=== PATIENT | male | born 1975 | race African-American/Black ===

== ENCOUNTER 2017-05-10 22:43 | Inpatient (IN) ==
[2017-05-10 23:22] LABS: Basophils % 0.5 % (0.0-0.8); Eosinophils # 0.1 10*3/uL (0.0-0.87); Hematocrit 32.2 VOL% (42.0-52.0); Hemoglobin 10.2 GM/DL (14.0-18.0); Immature Granulocytes % 0.8 %; Immature Granulocytes Absolute 0.07 #; Lymphocytes # 1.1 10*3/uL (1.4-4.0); Lymphocytes % 12.5 % (21.2-54.2); Mean Corpuscular HGB Conc 31.7 GM/DL (32-36); Mean Corpuscular Hemoglobin 26 PG (27-34); Mean Platelet Volume 12.7 FL (9.6-12.0); Monocytes # 0.6 10*3/uL (0.11-0.8); Monocytes % 7.1 % (1.7-12.7); Neutrophils # 6.6 10*3/uL (1.4-7.4); Neutrophils % 78.1 % (38.7-73.9); Platelet Count 186 T/CUMM (130-400); Red Blood Count 3.88 MC/CUMM (3.8-5.5); Red Cell Distribution Width 19.9 % (9.3-17.3); White Blood Count 8.4 T/CUMM (4-12)
[2017-05-10 23:29] LABS: VBG HCO3 27.2 MEQ/L (24-28); VBG PCO2 32.8 MMHG (41-51); VBG PH 7.504
[2017-05-11] LABS: Albumin 3.3 G/DL (3.4-5.0); Bilirubin,Total 1.3 MG/DL (0.2-1.0); Calcium 8.2 MG/DL (8.5-10.1); Osmolality,Calculated 297.8 MOS/KG (273-304); Total Protein 7.8 G/DL (6.4-8.3); Troponin I Only 0.038 NG/ML (0.00-0.045)
[2017-05-11] MEDS ORDERED: ONDANSETRON 4 MG/2 ML VIAL IV PRN (00:45)
[2017-05-11] MEDS ORDERED: DEXTROSE 50% 25 GM/50 ML VIAL IV PRN (00:45)
[2017-05-11] MEDS ORDERED: GLUCAGON 1 MG VIAL IM PRN (00:45)
[2017-05-11] MEDS ORDERED: PREGABALIN 75 MG CAPSULE PO PRN (00:48)
[2017-05-11] MEDS: INSULIN GLARGINE 100 UNIT/ML SUBCUT SCH ×2 (02:08→20:20)
[2017-05-11] MEDS: CARVEDILOL 25 MG TABLET PO SCH ×3 (02:08→20:19)
[2017-05-11] MEDS: ZALEPLON 5 MG CAPSULE PO PRN ×2 (02:15→20:19)
[2017-05-11 06:18] LABS: Basophils # 0.1 10*3/uL (0.0-0.2); Basophils % 0.6 % (0.0-0.8); Eosinophils # 0.1 10*3/uL (0.0-0.87); Eosinophils % 0.7 % (0.00-10.9); Hematocrit 30.8 VOL% (42.0-52.0); Hemoglobin 9.9 GM/DL (14.0-18.0); Immature Granulocytes % 0.4 %; Immature Granulocytes Absolute 0.03 #; Lymphocytes # 1.1 10*3/uL (1.4-4.0); Lymphocytes % 13.3 % (21.2-54.2); Mean Corpuscular HGB Conc 32.1 GM/DL (32-36); Mean Corpuscular Hemoglobin 27 PG (27-34); Mean Corpuscular Volume 82.8 FL (87-102); Mean Platelet Volume 13.8 FL (9.6-12.0); Monocytes # 0.6 10*3/uL (0.11-0.8); Monocytes % 7.7 % (1.7-12.7); Neutrophils # 6.2 10*3/uL (1.4-7.4); Neutrophils % 77.3 % (38.7-73.9); Platelet Count 185 T/CUMM (130-400); Red Blood Count 3.72 MC/CUMM (3.8-5.5); White Blood Count 8.1 T/CUMM (4-12)
[2017-05-11 06:49] LABS: Bilirubin,Total 1.1 MG/DL (0.2-1.0); Calcium 8.3 MG/DL (8.5-10.1); Osmolality,Calculated 296.7 MOS/KG (273-304); Potassium 4.1 MMOL/L (3.5-5.1); Total Protein 7.5 G/DL (6.4-8.3)
[2017-05-11] MEDS ORDERED: LIDOCAINE/PRILOCAINE CREAM 5 GM TUBE TOP ONE (08:07)
[2017-05-11] MEDS: LOSARTAN 25 MG TABLET PO SCH (09:02)
[2017-05-11] MEDS: ATORVASTATIN 40 MG TABLET PO SCH (09:02)
[2017-05-11] MEDS: PANTOPRAZOLE 40 MG TABLET PO SCH (09:02)
[2017-05-11] MEDS: ASPIRIN EC 81 MG TABLET PO SCH (09:03)
[2017-05-11] MEDS: ISOSORBIDE DINITRATE 20 MG TABLET PO SCH ×3 (09:03→20:19)
[2017-05-11] MEDS: amLODIPine 10 MG TABLET PO SCH (09:03)
[2017-05-11] MEDS: INSULIN ASPART PROTAMINE/ASPART 70/30 100 UNIT/ML SUBCUT SCH ×2 (09:03→17:40)
[2017-05-11] MEDS: INSULIN REGULAR 100 UNIT/ML SUBCUT SCH ×4 (09:03→20:17)
[2017-05-11] MEDS: MULTIVITAMIN (BEROCCA) TABLET PO SCH (09:03)
[2017-05-11] MEDS: ENOXAPARIN 30 MG/0.3 ML SYRINGE SUBCUT SCH (09:03)
[2017-05-11] MEDS ORDERED: PHENOL 1.4% THROAT SPRAY 177 ML BOTTLE PO PRN (17:19)
[2017-05-11] MEDS ORDERED: guaiFENesin 200 MG/10 ML UDCUP PO PRN (17:24)
[2017-05-12 07:38] LABS: Basophils % 0.6 % (0.0-0.8); Eosinophils # 0.1 10*3/uL (0.0-0.87); Eosinophils % 1.4 % (0.00-10.9); Hematocrit 29.6 VOL% (42.0-52.0); Immature Granulocytes % 0.5 %; Immature Granulocytes Absolute 0.03 #; Lymphocytes # 1.2 10*3/uL (1.4-4.0); Lymphocytes % 18.4 % (21.2-54.2); Mean Corpuscular HGB Conc 30.4 GM/DL (32-36); Mean Corpuscular Hemoglobin 26 PG (27-34); Mean Platelet Volume 13.2 FL (9.6-12.0); Monocytes # 0.5 10*3/uL (0.11-0.8); Neutrophils # 4.7 10*3/uL (1.4-7.4); Neutrophils % 71.1 % (38.7-73.9); Platelet Count 178 T/CUMM (130-400); Red Blood Count 3.44 MC/CUMM (3.8-5.5); Red Cell Distribution Width 20.1 % (9.3-17.3); White Blood Count 6.6 T/CUMM (4-12)
[2017-05-12 08:10] LABS: Magnesium 2.4 MG/DL (1.8-2.4); Osmolality,Calculated 289.5 MOS/KG (273-304); Potassium 4.3 MMOL/L (3.5-5.1)
[2017-05-12] MEDS: PANTOPRAZOLE 40 MG TABLET PO SCH (08:28)
[2017-05-12] MEDS: amLODIPine 10 MG TABLET PO SCH (08:28)
[2017-05-12] MEDS: ATORVASTATIN 40 MG TABLET PO SCH (08:28)
[2017-05-12] MEDS: CARVEDILOL 25 MG TABLET PO SCH (08:28)
[2017-05-12] MEDS: ISOSORBIDE DINITRATE 20 MG TABLET PO SCH (08:28)
[2017-05-12] MEDS: MULTIVITAMIN (BEROCCA) TABLET PO SCH (08:28)
[2017-05-12] MEDS: ASPIRIN EC 81 MG TABLET PO SCH (08:28)
[2017-05-12] MEDS: INSULIN ASPART PROTAMINE/ASPART 70/30 100 UNIT/ML SUBCUT SCH (08:28)
[2017-05-12] MEDS: LOSARTAN 25 MG TABLET PO SCH (08:29)
[2017-05-12] MEDS: INSULIN REGULAR 100 UNIT/ML SUBCUT SCH (08:29)
[2017-05-12] MEDS: ENOXAPARIN 30 MG/0.3 ML SYRINGE SUBCUT SCH (08:29)
[2017-05-12] MEDS ORDERED: SKIN HEALING OINT (AQUAPHOR) 50 GM TUBE TOP PRN (09:09)
[2017-05-12] MEDS ORDERED: SODIUM HYPOCHLORITE 0.25% IRRIG 473 ML BOTTLE TOP SCH (09:30)
[2017-05-12 10:01] VITALS: BP 142/76
== END 2017-05-12 13:11 | disposition home health service (06) | DRG 291 ==
LOC: N.ED 22:43 → N.EDINP 05-11 00:45 → N.5E 05-11 01:34
PROVIDERS: ADMIT Internal Medicine; ATTEND Internal Medicine

== ENCOUNTER 2017-06-04 20:23 | Inpatient (IN) ==
[2017-06-04] MEDS ORDERED: CLINDAMYCIN INJ 600 MG in PREMIX 1 EACH IV STA (20:54)
[2017-06-04 21:33] LABS: Basophils # 0.1 10*3/uL (0.0-0.2); Basophils % 1.3 % (0.0-0.8); Eosinophils # 0.2 10*3/uL (0.0-0.87); Eosinophils % 2.7 % (0.00-10.9); Hematocrit 27.2 VOL% (42.0-52.0); Hemoglobin 8.5 GM/DL (14.0-18.0); Immature Granulocytes % 0.3 %; Immature Granulocytes Absolute 0.02 #; Lymphocytes # 1.2 10*3/uL (1.4-4.0); Lymphocytes % 18.4 % (21.2-54.2); Mean Corpuscular HGB Conc 31.3 GM/DL (32-36); Mean Corpuscular Hemoglobin 26 PG (27-34); Mean Corpuscular Volume 82.2 FL (87-102); Mean Platelet Volume 13.2 FL (9.6-12.0); Monocytes # 0.8 10*3/uL (0.11-0.8); Monocytes % 12.6 % (1.7-12.7); Neutrophils # 4.1 10*3/uL (1.4-7.4); Neutrophils % 64.7 % (38.7-73.9); Platelet Count 219 T/CUMM (130-400); Red Blood Count 3.31 MC/CUMM (3.8-5.5); Red Cell Distribution Width 19.5 % (9.3-17.3); White Blood Count 6.4 T/CUMM (4-12)
[2017-06-04 21:54] LABS: INR 1.2; PT Patient Result 12.7 SECS
[2017-06-04] MEDS ORDERED: CLINDAMYCIN INJ 50 ML IV ONE (22:02)
[2017-06-04 22:09] LABS: Albumin 2.9 G/DL (3.4-5.0); Bilirubin,Total 0.7 MG/DL (0.2-1.0); Calcium 8.5 MG/DL (8.5-10.1); Potassium 3.7 MMOL/L (3.5-5.1); Total Protein 8.1 G/DL (6.4-8.3)
[2017-06-04 22:43] LABS: Sedimentation Rate-Westergren 119 MM/HR (0-15)
[2017-06-05] MEDS ORDERED: DEXTROSE 50% 25 GM/50 ML VIAL IV PRN (00:22)
[2017-06-05] MEDS ORDERED: ACETAMINOPHEN 325 MG TABLET PO PRN (00:22)
[2017-06-05] MEDS ORDERED: ONDANSETRON 4 MG/2 ML VIAL IV PRN (00:22)
[2017-06-05] MEDS ORDERED: PREGABALIN 50 MG CAPSULE PO PRN (00:22)
[2017-06-05] MEDS ORDERED: GLUCAGON 1 MG VIAL IM PRN (00:22)
[2017-06-05] MEDS: INSULIN GLARGINE 100 UNIT/ML SUBCUT SCH ×2 (01:24→22:05)
[2017-06-05] MEDS: CARVEDILOL 25 MG TABLET PO SCH ×3 (01:24→21:53)
[2017-06-05] MEDS: INSULIN LISPRO 100 UNIT/ML SUBCUT SCH ×4 (01:24→18:35)
[2017-06-05] MEDS ORDERED: ATORVASTATIN 40 MG TABLET PO SCH (09:00)
[2017-06-05] MEDS: ENOXAPARIN 30 MG/0.3 ML SYRINGE SUBCUT SCH (09:12)
[2017-06-05] MEDS: ISOSORBIDE DINITRATE 10 MG TABLET PO SCH ×3 (09:13→21:52)
[2017-06-05] MEDS: amLODIPine 10 MG TABLET PO SCH (09:14)
[2017-06-05] MEDS: MULTIVITAMIN (BEROCCA) TABLET PO SCH (09:14)
[2017-06-05] MEDS: PANTOPRAZOLE 40 MG TABLET PO SCH (09:14)
[2017-06-05] MEDS: DOCUSATE SODIUM 100 MG CAPSULE PO SCH ×2 (09:14→21:52)
[2017-06-05] MEDS: ASPIRIN EC 81 MG TABLET PO SCH (09:14)
[2017-06-05] MEDS: LOSARTAN 25 MG TABLET PO SCH (09:14)
[2017-06-05] MEDS ORDERED: CHLORHEXIDINE 4% SOLN 118 ML BOTTLE TOP ONE (19:07)
[2017-06-05] MEDS: SODIUM HYPOCHLORITE 0.25% IRRIG 473 ML BOTTLE TOP SCH (21:12)
[2017-06-05] MEDS: SKIN HEALING OINT (AQUAPHOR) 50 GM TUBE TOP PRN (21:13)
[2017-06-05] MEDS: BACITRACIN OINT 0.9 GM PACK TOP SCH (21:13)
[2017-06-06] MEDS: INSULIN LISPRO 100 UNIT/ML SUBCUT SCH ×4 (01:45→17:10)
[2017-06-06 07:58] LABS: Apearance,Urine Slightly Hazy (Clear); Bilirubin,Urine Negative (Negative); Blood, Urine Small mg/dL (Negative); Glucose,Urine (UA) 50 mg/dL (Negative); Hyaline Casts,Urine 4 /LPF (0-3); Ketones,Urine Negative (Negative); Mucus,Urine Occasional /LPF (Occasional); Nitrite,Urine Negative (Negative); Protein,Urine >=500 MG/DL; RBC,Urine 1 /HPF (0-4); Urine Color Amber (Yellow); Urine Urobilinogen < 2.0 EU/DL (0.2-1.0); WBC,Urine 7 /HPF (0-6)
[2017-06-06] MEDS: amLODIPine 10 MG TABLET PO SCH (08:24)
[2017-06-06] MEDS: MULTIVITAMIN (BEROCCA) TABLET PO SCH (08:24)
[2017-06-06] MEDS: ISOSORBIDE DINITRATE 10 MG TABLET PO SCH ×3 (08:24→21:07)
[2017-06-06] MEDS: ASPIRIN EC 81 MG TABLET PO SCH (08:24)
[2017-06-06] MEDS: PANTOPRAZOLE 40 MG TABLET PO SCH (08:24)
[2017-06-06] MEDS: DOCUSATE SODIUM 100 MG CAPSULE PO SCH ×2 (08:24→21:06)
[2017-06-06] MEDS: CARVEDILOL 25 MG TABLET PO SCH ×2 (08:24→21:06)
[2017-06-06] MEDS: ENOXAPARIN 30 MG/0.3 ML SYRINGE SUBCUT SCH (08:25)
[2017-06-06] MEDS: LOSARTAN 25 MG TABLET PO SCH (08:25)
[2017-06-06] MEDS: BACITRACIN OINT 0.9 GM PACK TOP SCH (15:00)
[2017-06-06] MEDS: SODIUM HYPOCHLORITE 0.25% IRRIG 473 ML BOTTLE TOP SCH (15:00)
[2017-06-06] MEDS: INSULIN GLARGINE 100 UNIT/ML SUBCUT SCH (21:08)
[2017-06-07] MEDS: INSULIN LISPRO 100 UNIT/ML SUBCUT SCH ×4 (00:01→17:36)
[2017-06-07 05:43] LABS: Basophils # 0.1 10*3/uL (0.0-0.2); Basophils % 0.9 % (0.0-0.8); Eosinophils # 0.2 10*3/uL (0.0-0.87); Eosinophils % 2.2 % (0.00-10.9); Hematocrit 25.3 VOL% (42.0-52.0); Hemoglobin 7.8 GM/DL (14.0-18.0); Immature Granulocytes % 0.7 %; Immature Granulocytes Absolute 0.05 #; Lymphocytes # 1.5 10*3/uL (1.4-4.0); Lymphocytes % 20.8 % (21.2-54.2); Mean Corpuscular HGB Conc 30.8 GM/DL (32-36); Mean Corpuscular Hemoglobin 26 PG (27-34); Mean Corpuscular Volume 82.7 FL (87-102); Mean Platelet Volume 12.7 FL (9.6-12.0); Monocytes # 0.7 10*3/uL (0.11-0.8); Monocytes % 9.5 % (1.7-12.7); Neutrophils # 4.6 10*3/uL (1.4-7.4); Neutrophils % 65.9 % (38.7-73.9); Platelet Count 215 T/CUMM (130-400); Red Blood Count 3.06 MC/CUMM (3.8-5.5); Red Cell Distribution Width 19.9 % (9.3-17.3)
[2017-06-07 06:18] LABS: Albumin 2.7 G/DL (3.4-5.0); Bilirubin,Total 0.5 MG/DL (0.2-1.0); Calcium 7.8 MG/DL (8.5-10.1); Magnesium 2.5 MG/DL (1.8-2.4); Osmolality,Calculated 291.7 MOS/KG (273-304); Phosphorous 5.9 MG/DL (2.5-4.9); Potassium 4.5 MMOL/L (3.5-5.1); Total Protein 7.4 G/DL (6.4-8.3)
[2017-06-07] MEDS: LOSARTAN 25 MG TABLET PO SCH (08:31)
[2017-06-07] MEDS: CARVEDILOL 25 MG TABLET PO SCH ×2 (08:31→20:08)
[2017-06-07] MEDS: BACITRACIN OINT 0.9 GM PACK TOP SCH (08:31)
[2017-06-07] MEDS: PANTOPRAZOLE 40 MG TABLET PO SCH (08:31)
[2017-06-07] MEDS: amLODIPine 10 MG TABLET PO SCH (08:31)
[2017-06-07] MEDS: MULTIVITAMIN (BEROCCA) TABLET PO SCH (08:31)
[2017-06-07] MEDS: ISOSORBIDE DINITRATE 10 MG TABLET PO SCH ×3 (08:31→20:08)
[2017-06-07] MEDS: ASPIRIN EC 81 MG TABLET PO SCH (08:31)
[2017-06-07] MEDS: DOCUSATE SODIUM 100 MG CAPSULE PO SCH ×2 (08:32→20:08)
[2017-06-07] MEDS: SODIUM HYPOCHLORITE 0.25% IRRIG 473 ML BOTTLE TOP SCH (08:32)
[2017-06-07] MEDS: SKIN HEALING OINT (AQUAPHOR) 50 GM TUBE TOP PRN (08:32)
[2017-06-07] MEDS: ENOXAPARIN 30 MG/0.3 ML SYRINGE SUBCUT SCH (08:33)
[2017-06-07] MEDS: INSULIN GLARGINE 100 UNIT/ML SUBCUT SCH (20:08)
[2017-06-08] MEDS: INSULIN LISPRO 100 UNIT/ML SUBCUT SCH ×5 (01:43→23:22)
[2017-06-08] MEDS: ISOSORBIDE DINITRATE 10 MG TABLET PO SCH ×3 (13:48→20:11)
[2017-06-08] MEDS: CARVEDILOL 25 MG TABLET PO SCH ×2 (13:48→20:11)
[2017-06-08] MEDS: ASPIRIN EC 81 MG TABLET PO SCH (14:24)
[2017-06-08] MEDS: ENOXAPARIN 30 MG/0.3 ML SYRINGE SUBCUT SCH (14:24)
[2017-06-08] MEDS: LACTOBACILLUS ACIDOPHILUS/BULGARICUS CAPLET PO SCH ×2 (14:24→20:11)
[2017-06-08] MEDS: amLODIPine 10 MG TABLET PO SCH (14:25)
[2017-06-08] MEDS: BACITRACIN OINT 0.9 GM PACK TOP SCH (14:25)
[2017-06-08] MEDS: DOCUSATE SODIUM 100 MG CAPSULE PO SCH ×2 (14:25→20:11)
[2017-06-08] MEDS: LOSARTAN 25 MG TABLET PO SCH (14:26)
[2017-06-08] MEDS: PANTOPRAZOLE 40 MG TABLET PO SCH (14:26)
[2017-06-08] MEDS: SODIUM HYPOCHLORITE 0.25% IRRIG 473 ML BOTTLE TOP SCH (14:26)
[2017-06-08] MEDS: MULTIVITAMIN (BEROCCA) TABLET PO SCH (14:26)
[2017-06-08] MEDS ORDERED: SODIUM CHLORIDE 0.9% 1,000 ML IV PRN (14:29)
[2017-06-08] MEDS: INSULIN GLARGINE 100 UNIT/ML SUBCUT SCH (20:11)
[2017-06-09] MEDS: INSULIN LISPRO 100 UNIT/ML SUBCUT SCH ×3 (05:25→18:05)
[2017-06-09 06:20] LABS: Basophils # 0.1 10*3/uL (0.0-0.2); Basophils % 0.9 % (0.0-0.8); Eosinophils # 0.2 10*3/uL (0.0-0.87); Eosinophils % 2.8 % (0.00-10.9); Hematocrit 27.1 VOL% (42.0-52.0); Hemoglobin 8.4 GM/DL (14.0-18.0); Immature Granulocytes % 0.8 %; Immature Granulocytes Absolute 0.05 #; Lymphocytes # 1.3 10*3/uL (1.4-4.0); Lymphocytes % 19.6 % (21.2-54.2); Mean Corpuscular Hemoglobin 26 PG (27-34); Mean Corpuscular Volume 82.9 FL (87-102); Monocytes # 0.6 10*3/uL (0.11-0.8); Neutrophils # 4.3 10*3/uL (1.4-7.4); Neutrophils % 66.9 % (38.7-73.9); Platelet Count 233 T/CUMM (130-400); Red Blood Count 3.27 MC/CUMM (3.8-5.5); Red Cell Distribution Width 19.9 % (9.3-17.3); White Blood Count 6.5 T/CUMM (4-12)
[2017-06-09 06:59] LABS: Calcium 8.5 MG/DL (8.5-10.1); Osmolality,Calculated 286.8 MOS/KG (273-304); Potassium 4.6 MMOL/L (3.5-5.1)
[2017-06-09] MEDS: LACTOBACILLUS ACIDOPHILUS/BULGARICUS CAPLET PO SCH ×2 (09:08→20:31)
[2017-06-09] MEDS: LOSARTAN 25 MG TABLET PO SCH (09:08)
[2017-06-09] MEDS: PANTOPRAZOLE 40 MG TABLET PO SCH (09:08)
[2017-06-09] MEDS: ENOXAPARIN 30 MG/0.3 ML SYRINGE SUBCUT SCH (09:08)
[2017-06-09] MEDS: DOCUSATE SODIUM 100 MG CAPSULE PO SCH ×2 (09:09→20:34)
[2017-06-09] MEDS: ISOSORBIDE DINITRATE 10 MG TABLET PO SCH ×3 (09:09→20:31)
[2017-06-09] MEDS: amLODIPine 10 MG TABLET PO SCH (09:09)
[2017-06-09] MEDS: MULTIVITAMIN (BEROCCA) TABLET PO SCH (09:09)
[2017-06-09] MEDS: CARVEDILOL 25 MG TABLET PO SCH ×2 (09:09→20:31)
[2017-06-09] MEDS: ASPIRIN EC 81 MG TABLET PO SCH (09:09)
[2017-06-09] MEDS: BACITRACIN OINT 0.9 GM PACK TOP SCH (10:25)
[2017-06-09] MEDS: SODIUM HYPOCHLORITE 0.25% IRRIG 473 ML BOTTLE TOP SCH (10:45)
[2017-06-09] MEDS: INSULIN GLARGINE 100 UNIT/ML SUBCUT SCH (20:32)
[2017-06-10] MEDS: INSULIN LISPRO 100 UNIT/ML SUBCUT SCH ×3 (00:11→13:39)
[2017-06-10 05:55] LABS: Basophils # 0.1 10*3/uL (0.0-0.2); Basophils % 1.3 % (0.0-0.8); Eosinophils # 0.2 10*3/uL (0.0-0.87); Eosinophils % 2.4 % (0.00-10.9); Hematocrit 26.1 VOL% (42.0-52.0); Immature Granulocytes % 0.7 %; Immature Granulocytes Absolute 0.05 #; Lymphocytes # 1.4 10*3/uL (1.4-4.0); Lymphocytes % 21.2 % (21.2-54.2); Mean Corpuscular HGB Conc 30.7 GM/DL (32-36); Mean Corpuscular Hemoglobin 25 PG (27-34); Mean Corpuscular Volume 82.6 FL (87-102); Mean Platelet Volume 12.8 FL (9.6-12.0); Monocytes # 0.7 10*3/uL (0.11-0.8); Monocytes % 10.6 % (1.7-12.7); Neutrophils # 4.3 10*3/uL (1.4-7.4); Neutrophils % 63.8 % (38.7-73.9); Platelet Count 214 T/CUMM (130-400); Red Blood Count 3.16 MC/CUMM (3.8-5.5); Red Cell Distribution Width 19.9 % (9.3-17.3); White Blood Count 6.7 T/CUMM (4-12)
[2017-06-10 06:41] LABS: Calcium 8.1 MG/DL (8.5-10.1)
[2017-06-10] MEDS: ISOSORBIDE DINITRATE 10 MG TABLET PO SCH ×2 (13:40→14:39)
[2017-06-10] MEDS: ASPIRIN EC 81 MG TABLET PO SCH (14:38)
[2017-06-10] MEDS: MULTIVITAMIN (BEROCCA) TABLET PO SCH (14:38)
[2017-06-10] MEDS: LACTOBACILLUS ACIDOPHILUS/BULGARICUS CAPLET PO SCH (14:38)
[2017-06-10] MEDS: BACITRACIN OINT 0.9 GM PACK TOP SCH (14:38)
[2017-06-10] MEDS: LOSARTAN 25 MG TABLET PO SCH (14:39)
[2017-06-10] MEDS: ENOXAPARIN 30 MG/0.3 ML SYRINGE SUBCUT SCH (14:39)
[2017-06-10] MEDS: CARVEDILOL 25 MG TABLET PO SCH (14:39)
[2017-06-10] MEDS: SODIUM HYPOCHLORITE 0.25% IRRIG 473 ML BOTTLE TOP SCH (14:39)
[2017-06-10] MEDS: PANTOPRAZOLE 40 MG TABLET PO SCH (14:39)
[2017-06-10] MEDS: DOCUSATE SODIUM 100 MG CAPSULE PO SCH (14:39)
[2017-06-10] MEDS: amLODIPine 10 MG TABLET PO SCH (14:39)
[2017-06-10 15:28] VITALS: BP 163/90
== END 2017-06-10 17:13 | disposition home health service (06) | DRG 871 ==
LOC: N.ED 20:23 → N.EDINP 23:07 → SUATTDRO 23:07 → N.5E 23:38
PROVIDERS: ADMIT Internal Medicine Nephrology; ATTEND Internal Medicine

== ENCOUNTER 2017-12-06 14:22 | Inpatient (IN) ==
[2017-12-06] MEDS ORDERED: ACETAMINOPHEN 500 MG TABLET ONE (16:07)
[2017-12-06] MEDS ORDERED: ACETAMINOPHEN 500 MG TABLET PO STA (16:07)
[2017-12-06 16:12] LABS: ABG Base Excess 3.4 MMOL/L (-2.5-2.5); ABG Oxygen Saturation 95.7 % (95-100); ABG PO2 73.1 MM HG (80-95); ABG TCO2 24.7 MMOL/L (23-27)
[2017-12-06 16:14] LABS: ABG PH 7.618 (7.35-7.45)
[2017-12-06] MEDS ORDERED: VANCOMYCIN INJ 1,250 MG in SODIUM CHLORIDE 0.9% 250 ML IV STA (16:26)
[2017-12-06] MEDS ORDERED: PIPERACILLIN/TAZOBACTAM 2,250 MG in SODIUM CHLORIDE 0.9% 100 ML IV STA (16:29)
[2017-12-06 16:30] LABS: Basophils # 0.1 10*3/uL (0.0-0.2); Basophils % 0.4 % (0.0-0.8); Eosinophils # 0.1 10*3/uL (0.0-0.87); Eosinophils % 0.5 % (0.00-10.9); Hematocrit 28.3 VOL% (42.0-52.0); Immature Granulocytes % 0.9 %; Immature Granulocytes Absolute 0.11 #; Lymphocytes # 0.6 10*3/uL (1.4-4.0); Mean Corpuscular HGB Conc 31.8 GM/DL (32-36); Mean Corpuscular Hemoglobin 26 PG (27-34); Mean Corpuscular Volume 80.4 FL (87-102); Mean Platelet Volume 13.9 FL (9.6-12.0); Monocytes # 0.5 10*3/uL (0.11-0.8); Neutrophils # 11.5 10*3/uL (1.4-7.4); Neutrophils % 89.2 % (38.7-73.9); Platelet Count 182 T/CUMM (130-400); Red Blood Count 3.52 MC/CUMM (3.8-5.5); Red Cell Distribution Width 19.8 % (9.3-17.3); White Blood Count 12.9 T/CUMM (4-12)
[2017-12-06] MEDS ORDERED: PIPERACILLIN/TAZOBACTAM 2,250 MG in SODIUM CHLORIDE 0.9% 50 ML IV STA (16:31)
[2017-12-06] MEDS ORDERED: DEXTROSE 50% 25 GM/50 ML VIAL IV PRN (16:51)
[2017-12-06] MEDS ORDERED: ALBUTEROL 2.5 MG/3 ML NEB RESP TX PRN (16:51)
[2017-12-06] MEDS ORDERED: GLUCAGON 1 MG VIAL IM PRN (16:51)
[2017-12-06 17:00] LABS: Lactic Acid 1.5 MMOL/L (0.4-2.0)
[2017-12-06 17:01] LABS: Albumin 2.8 G/DL (3.4-5.0); Bilirubin,Total 1.7 MG/DL (0.2-1.0); Calcium 8.5 MG/DL (8.5-10.1); Osmolality,Calculated 290.1 MOS/KG (273-304); Potassium 4.4 MMOL/L (3.5-5.1); Total Protein 8.8 G/DL (6.4-8.3)
[2017-12-06] MEDS ORDERED: PANTOPRAZOLE 40 MG VIAL IV ONE (18:03)
[2017-12-06] MEDS: PANTOPRAZOLE 40 MG VIAL IV SCH (18:03)
[2017-12-06 18:08] LABS: Risk Ratio 2.54
[2017-12-06] MEDS ORDERED: PREGABALIN 50 MG CAPSULE PO PRN (18:16)
[2017-12-06] MEDS: INSULIN LISPRO 100 UNIT/ML SUBCUT SCH ×2 (18:42→21:19)
[2017-12-06] MEDS: INSULIN REGULAR 100 UNIT/ML SUBCUT SCH (21:18)
[2017-12-06] MEDS: ENOXAPARIN 30 MG/0.3 ML SYRINGE SUBCUT SCH (21:18)
[2017-12-06] MEDS: ISOSORBIDE DINITRATE 20 MG TABLET PO SCH (21:19)
[2017-12-06] MEDS: LACTOBACILLUS ACIDOPHILUS/BULGARICUS CAPLET PO SCH (21:19)
[2017-12-06] MEDS: CARVEDILOL 25 MG TABLET PO SCH (21:19)
[2017-12-07 03:25] LABS: ABG Base Excess 1.3 MMOL/L (-2.5-2.5); ABG HCO3 25.4 MMOL/L (20-26); ABG Oxygen Saturation 95.7 % (95-100); ABG PCO2 38.2 MM HG (35-48); ABG PH 7.441 (7.35-7.45); ABG PO2 80.4 MM HG (80-95); ABG TCO2 26.6 MMOL/L (23-27); Allen Test Positive; Pt O2 Delivery Device CPAP
[2017-12-07 05:30] LABS: Basophils # 0.1 10*3/uL (0.0-0.2); Basophils % 0.4 % (0.0-0.8); Eosinophils # 0.1 10*3/uL (0.0-0.87); Eosinophils % 0.4 % (0.00-10.9); Hematocrit 25.7 VOL% (42.0-52.0); Hemoglobin 8.2 GM/DL (14.0-18.0); Immature Granulocytes % 0.6 %; Immature Granulocytes Absolute 0.08 #; Lymphocytes # 0.9 10*3/uL (1.4-4.0); Lymphocytes % 7.1 % (21.2-54.2); Mean Corpuscular HGB Conc 31.9 GM/DL (32-36); Mean Corpuscular Hemoglobin 26 PG (27-34); Mean Corpuscular Volume 80.6 FL (87-102); Mean Platelet Volume 13.4 FL (9.6-12.0); Monocytes # 0.9 10*3/uL (0.11-0.8); Monocytes % 6.8 % (1.7-12.7); Neutrophils # 10.9 10*3/uL (1.4-7.4); Neutrophils % 84.7 % (38.7-73.9); Platelet Count 164 T/CUMM (130-400); Red Blood Count 3.19 MC/CUMM (3.8-5.5); Red Cell Distribution Width 19.6 % (9.3-17.3); White Blood Count 12.9 T/CUMM (4-12)
[2017-12-07 06:10] LABS: Albumin 2.6 G/DL (3.4-5.0); Bilirubin,Total 1.8 MG/DL (0.2-1.0); Calcium 8.3 MG/DL (8.5-10.1); Osmolality,Calculated 289.2 MOS/KG (273-304); Potassium 5.4 MMOL/L (3.5-5.1); Total Protein 8.1 G/DL (6.4-8.3)
[2017-12-07] MEDS: ISOSORBIDE DINITRATE 20 MG TABLET PO SCH ×3 (08:15→20:26)
[2017-12-07] MEDS: CARVEDILOL 25 MG TABLET PO SCH ×2 (08:16→20:29)
[2017-12-07] MEDS: amLODIPine 5 MG TABLET PO SCH (08:16)
[2017-12-07] MEDS: ASPIRIN EC 81 MG TABLET PO SCH (08:16)
[2017-12-07] MEDS: MULTIVITAMIN (BEROCCA) TABLET PO SCH (08:16)
[2017-12-07] MEDS: LACTOBACILLUS ACIDOPHILUS/BULGARICUS CAPLET PO SCH ×2 (08:16→20:29)
[2017-12-07] MEDS: INSULIN LISPRO 100 UNIT/ML SUBCUT SCH ×3 (08:42→20:35)
[2017-12-07] MEDS: INSULIN REGULAR 100 UNIT/ML SUBCUT SCH ×4 (08:42→20:29)
[2017-12-07] MEDS: PANTOPRAZOLE 40 MG VIAL IV SCH (17:19)
[2017-12-07] MEDS: ENOXAPARIN 30 MG/0.3 ML SYRINGE SUBCUT SCH (20:29)
[2017-12-08 06:55] LABS: Basophils # 0.1 10*3/uL (0.0-0.2); Basophils % 0.7 % (0.0-0.8); Eosinophils # 0.1 10*3/uL (0.0-0.87); Eosinophils % 1.4 % (0.00-10.9); Hematocrit 26.2 VOL% (42.0-52.0); Immature Granulocytes % 0.6 %; Immature Granulocytes Absolute 0.05 #; Lymphocytes # 1.1 10*3/uL (1.4-4.0); Lymphocytes % 11.9 % (21.2-54.2); Mean Corpuscular HGB Conc 30.5 GM/DL (32-36); Mean Corpuscular Hemoglobin 25 PG (27-34); Mean Corpuscular Volume 81.9 FL (87-102); Mean Platelet Volume 13.8 FL (9.6-12.0); Monocytes # 0.8 10*3/uL (0.11-0.8); Monocytes % 8.6 % (1.7-12.7); Neutrophils % 76.8 % (38.7-73.9); Platelet Count 170 T/CUMM (130-400); Red Cell Distribution Width 19.5 % (9.3-17.3); White Blood Count 9.1 T/CUMM (4-12)
[2017-12-08 07:14] LABS: Hypochromasia 1+; Microcytosis 1+
[2017-12-08 07:15] LABS: Ovalocytes Slight; Platelet Estimate Adequate; Target Cells Slight
[2017-12-08 07:23] LABS: Calcium 7.8 MG/DL (8.5-10.1); Osmolality,Calculated 290.7 MOS/KG (273-304); Potassium 4.6 MMOL/L (3.5-5.1)
[2017-12-08] MEDS: MULTIVITAMIN (BEROCCA) TABLET PO SCH (10:04)
[2017-12-08] MEDS: INSULIN REGULAR 100 UNIT/ML SUBCUT SCH ×4 (10:05→21:43)
[2017-12-08] MEDS: ISOSORBIDE DINITRATE 20 MG TABLET PO SCH ×3 (10:05→21:41)
[2017-12-08] MEDS: LACTOBACILLUS ACIDOPHILUS/BULGARICUS CAPLET PO SCH ×2 (10:06→21:41)
[2017-12-08] MEDS: CARVEDILOL 25 MG TABLET PO SCH ×2 (10:06→21:42)
[2017-12-08] MEDS: ASPIRIN EC 81 MG TABLET PO SCH (10:06)
[2017-12-08] MEDS: INSULIN LISPRO 100 UNIT/ML SUBCUT SCH ×3 (10:06→21:42)
[2017-12-08] MEDS: amLODIPine 5 MG TABLET PO SCH (11:30)
[2017-12-08] MEDS: PANTOPRAZOLE 40 MG VIAL IV SCH (17:43)
[2017-12-08] MEDS: ENOXAPARIN 30 MG/0.3 ML SYRINGE SUBCUT SCH (21:40)
[2017-12-09] MEDS: INSULIN REGULAR 100 UNIT/ML SUBCUT SCH ×2 (08:06→13:00)
[2017-12-09] MEDS: CARVEDILOL 25 MG TABLET PO SCH (08:07)
[2017-12-09] MEDS: MULTIVITAMIN (BEROCCA) TABLET PO SCH (08:07)
[2017-12-09] MEDS: INSULIN LISPRO 100 UNIT/ML SUBCUT SCH (08:07)
[2017-12-09] MEDS: ASPIRIN EC 81 MG TABLET PO SCH (08:07)
[2017-12-09] MEDS: LACTOBACILLUS ACIDOPHILUS/BULGARICUS CAPLET PO SCH (08:07)
[2017-12-09] MEDS: ISOSORBIDE DINITRATE 20 MG TABLET PO SCH (08:07)
[2017-12-09] MEDS: amLODIPine 5 MG TABLET PO SCH (08:08)
[2017-12-09 13:03] VITALS: BP 119/53
== END 2017-12-09 14:43 | disposition home or self-care (01) | DRG 864 ==
LOC: N.ED 14:22 → N.EDINP 16:51 → N.ICU 17:36 → N.5E 12-07 17:48
PROVIDERS: ADMIT Family Medicine; ATTEND Family Medicine

== ENCOUNTER 2017-12-23 17:06 | Inpatient (IN) ==
[2017-12-23 18:11] LABS: Troponin I Only < 0.015 NG/ML (0.00-0.045)
[2017-12-23] MEDS ORDERED: MORPHINE 4 MG/1 ML VIAL ONE (18:37)
[2017-12-23] MEDS ORDERED: ALBUTEROL/IPRATROPIUM 3 ML NEB RESP TX STA (19:47)
[2017-12-23] MEDS ORDERED: PANTOPRAZOLE 40 MG VIAL IV STA (19:47)
[2017-12-23] MEDS ORDERED: FUROSEMIDE 100 MG/10 ML VIAL IV STA (19:47)
[2017-12-23] MEDS ORDERED: ONDANSETRON 4 MG/2 ML VIAL IV STA (19:47)
[2017-12-23 20:09] LABS: Basophils # 0.1 10*3/uL (0.0-0.2); Basophils % 0.8 % (0.0-0.8); Eosinophils # 0.1 10*3/uL (0.0-0.87); Eosinophils % 0.8 % (0.00-10.9); Hematocrit 24.9 VOL% (42.0-52.0); Hemoglobin 7.6 GM/DL (14.0-18.0); Immature Granulocytes % 0.3 %; Immature Granulocytes Absolute 0.02 #; Lymphocytes # 0.8 10*3/uL (1.4-4.0); Lymphocytes % 11.4 % (21.2-54.2); Mean Corpuscular HGB Conc 30.5 GM/DL (32-36); Mean Corpuscular Hemoglobin 25 PG (27-34); Mean Corpuscular Volume 82.7 FL (87-102); Monocytes # 0.8 10*3/uL (0.11-0.8); Neutrophils # 5.4 10*3/uL (1.4-7.4); Neutrophils % 75.7 % (38.7-73.9); Platelet Count 140 T/CUMM (130-400); Red Blood Count 3.01 MC/CUMM (3.8-5.5); Red Cell Distribution Width 20.4 % (9.3-17.3); White Blood Count 7.2 T/CUMM (4-12)
[2017-12-23 20:11] LABS: INR 1.2; PT Patient Result 12.9 SECS
[2017-12-23 20:17] LABS: Alanine Aminotransferase 37 U/L (16-61); Albumin 2.6 G/DL (3.4-5.0); Alkaline Phosphatase 335 U/L (45-117); Aspartate Amino Transferase 56 U/L (0-37); Blood Urea Nitrogen 24 MG/DL (7-18); Calcium 8.3 MG/DL (8.5-10.1); Glucose 268 MG/DL (74-106); Osmolality,Calculated 282.1 MOS/KG (273-304); Potassium 3.6 MMOL/L (3.5-5.1); Sodium 135 MMOL/L (136-145); Total Protein 8.3 G/DL (6.4-8.3); Troponin I Only < 0.015 NG/ML (0.00-0.045)
[2017-12-23] MEDS ORDERED: ACETAMINOPHEN 325 MG TABLET PO PRN (22:34)
[2017-12-23] MEDS ORDERED: ONDANSETRON 4 MG/2 ML VIAL IV PRN (22:34)
[2017-12-23] MEDS ORDERED: PREGABALIN 75 MG CAPSULE PO SCH (22:45)
[2017-12-23] MEDS: DOXYCYCLINE HYCLATE 100 MG CAPSULE PO SCH (23:47)
[2017-12-24 07:30] LABS: Basophils # 0.1 10*3/uL (0.0-0.2); Basophils % 0.9 % (0.0-0.8); Eosinophils # 0.1 10*3/uL (0.0-0.87); Eosinophils % 0.9 % (0.00-10.9); Hematocrit 24.7 VOL% (42.0-52.0); Hemoglobin 7.4 GM/DL (14.0-18.0); Immature Granulocytes % 0.6 %; Immature Granulocytes Absolute 0.04 #; Lymphocytes # 0.8 10*3/uL (1.4-4.0); Lymphocytes % 11.3 % (21.2-54.2); Mean Corpuscular Hemoglobin 25 PG (27-34); Mean Platelet Volume 13.6 FL (9.6-12.0); Monocytes # 0.8 10*3/uL (0.11-0.8); Monocytes % 11.3 % (1.7-12.7); Neutrophils # 5.2 10*3/uL (1.4-7.4); Platelet Count 167 T/CUMM (130-400); Red Blood Count 2.94 MC/CUMM (3.8-5.5); Red Cell Distribution Width 20.4 % (9.3-17.3)
[2017-12-24 08:00] LABS: Albumin 2.4 G/DL (3.4-5.0); Bilirubin,Total 1.2 MG/DL (0.2-1.0); Potassium 3.7 MMOL/L (3.5-5.1); Total Protein 8.6 G/DL (6.4-8.3)
[2017-12-24] MEDS: DOXYCYCLINE HYCLATE 100 MG CAPSULE PO SCH ×2 (09:46→21:13)
[2017-12-24] MEDS: PANTOPRAZOLE 40 MG TABLET PO SCH (09:46)
[2017-12-24] MEDS: CALCIUM ACETATE 667 MG CAPSULE PO SCH ×3 (09:46→18:15)
[2017-12-24] MEDS: LOSARTAN 50 MG TABLET PO SCH (09:47)
[2017-12-24] MEDS: CARVEDILOL 25 MG TABLET PO SCH ×2 (09:47→18:15)
[2017-12-24] MEDS: LACTOBACILLUS ACIDOPHILUS/BULGARICUS CAPLET PO SCH ×2 (09:52→21:14)
[2017-12-24] MEDS: amLODIPine 5 MG TABLET PO SCH (09:52)
[2017-12-24] MEDS: ISOSORBIDE DINITRATE 10 MG TABLET PO SCH ×3 (09:52→21:13)
[2017-12-24] MEDS ORDERED: SODIUM CHLORIDE 0.9% 1,000 ML IV PRN (11:18)
[2017-12-24] MEDS ORDERED: DEXTROSE 50% 25 GM/50 ML VIAL IV PRN (11:49)
[2017-12-24] MEDS ORDERED: GLUCAGON 1 MG VIAL IM PRN (11:49)
[2017-12-24] MEDS: INSULIN GLARGINE 100 UNIT/ML SUBCUT SCH (18:16)
[2017-12-24] MEDS: INSULIN LISPRO 100 UNIT/ML SUBCUT SCH ×2 (18:17→21:14)
[2017-12-24] MEDS: PREGABALIN 50 MG CAPSULE PO SCH (21:12)
[2017-12-24] MEDS: ATORVASTATIN 40 MG TABLET PO SCH (21:14)
[2017-12-25 05:11] LABS: Basophils # 0.1 10*3/uL (0.0-0.2); Basophils % 0.9 % (0.0-0.8); Eosinophils # 0.2 10*3/uL (0.0-0.87); Eosinophils % 3.4 % (0.00-10.9); Hemoglobin 7.7 GM/DL (14.0-18.0); Immature Granulocytes % 0.5 %; Immature Granulocytes Absolute 0.03 #; Lymphocytes % 14.7 % (21.2-54.2); Mean Corpuscular HGB Conc 32.1 GM/DL (32-36); Mean Corpuscular Hemoglobin 26 PG (27-34); Mean Corpuscular Volume 80.8 FL (87-102); Mean Platelet Volume 14.1 FL (9.6-12.0); Monocytes # 0.7 10*3/uL (0.11-0.8); Neutrophils # 4.6 10*3/uL (1.4-7.4); Neutrophils % 70.5 % (38.7-73.9); Platelet Count 177 T/CUMM (130-400); Red Blood Count 2.97 MC/CUMM (3.8-5.5); Red Cell Distribution Width 19.9 % (9.3-17.3); White Blood Count 6.5 T/CUMM (4-12)
[2017-12-25 05:19] LABS: Calcium 8.4 MG/DL (8.5-10.1); Potassium 3.9 MMOL/L (3.5-5.1)
[2017-12-25] MEDS: INSULIN LISPRO 100 UNIT/ML SUBCUT SCH ×4 (09:23→20:37)
[2017-12-25] MEDS ORDERED: LIDOCAINE 2% 5 ML VIAL ONE (13:27)
[2017-12-25] MEDS ORDERED: PROPOFOL 200 MG/20 ML VIAL IV ONE (13:27)
[2017-12-25] MEDS ORDERED: SODIUM CHLORIDE 0.9% 1,000 ML IV PRN (14:45)
[2017-12-25] MEDS: ISOSORBIDE DINITRATE 10 MG TABLET PO SCH ×3 (17:09→20:37)
[2017-12-25] MEDS: LOSARTAN 50 MG TABLET PO SCH (17:10)
[2017-12-25] MEDS: LACTOBACILLUS ACIDOPHILUS/BULGARICUS CAPLET PO SCH ×2 (17:10→20:37)
[2017-12-25] MEDS: PANTOPRAZOLE 40 MG TABLET PO SCH (17:11)
[2017-12-25] MEDS: CARVEDILOL 25 MG TABLET PO SCH ×2 (17:11→20:38)
[2017-12-25] MEDS: amLODIPine 5 MG TABLET PO SCH (17:11)
[2017-12-25] MEDS: CALCIUM ACETATE 667 MG CAPSULE PO SCH ×3 (17:11→18:58)
[2017-12-25] MEDS: PRORENAL D PO SCH (17:12)
[2017-12-25] MEDS: DOXYCYCLINE HYCLATE 100 MG CAPSULE PO SCH ×2 (17:12→20:37)
[2017-12-25] MEDS ORDERED: GLUCAGON 1 MG VIAL IM PRN (19:00)
[2017-12-25] MEDS ORDERED: DEXTROSE 50% 25 GM/50 ML VIAL IV PRN (19:00)
[2017-12-25] MEDS: INSULIN GLARGINE 100 UNIT/ML SUBCUT SCH (20:35)
[2017-12-25] MEDS: PREGABALIN 50 MG CAPSULE PO SCH ×2 (20:38→20:39)
[2017-12-25] MEDS: ATORVASTATIN 40 MG TABLET PO SCH (20:38)
[2017-12-25 23:47] LABS: Basophils # 0.1 10*3/uL (0.0-0.2); Basophils % 1.3 % (0.0-0.8); Eosinophils # 0.2 10*3/uL (0.0-0.87); Eosinophils % 2.1 % (0.00-10.9); Hematocrit 28.8 VOL% (42.0-52.0); Immature Granulocytes % 0.4 %; Immature Granulocytes Absolute 0.03 #; Lymphocytes # 1.1 10*3/uL (1.4-4.0); Lymphocytes % 13.9 % (21.2-54.2); Mean Corpuscular HGB Conc 31.3 GM/DL (32-36); Mean Corpuscular Hemoglobin 26 PG (27-34); Mean Corpuscular Volume 83.7 FL (87-102); Mean Platelet Volume 13.3 FL (9.6-12.0); Monocytes # 0.7 10*3/uL (0.11-0.8); Monocytes % 9.4 % (1.7-12.7); Neutrophils # 5.5 10*3/uL (1.4-7.4); Neutrophils % 72.9 % (38.7-73.9); Platelet Count 195 T/CUMM (130-400); Red Blood Count 3.44 MC/CUMM (3.8-5.5); Red Cell Distribution Width 19.3 % (9.3-17.3); White Blood Count 7.6 T/CUMM (4-12)
[2017-12-26] MEDS: LOSARTAN 50 MG TABLET PO SCH (09:12)
[2017-12-26] MEDS: DOXYCYCLINE HYCLATE 100 MG CAPSULE PO SCH ×2 (09:12→21:24)
[2017-12-26] MEDS: CALCIUM ACETATE 667 MG CAPSULE PO SCH ×3 (09:12→16:32)
[2017-12-26] MEDS: amLODIPine 5 MG TABLET PO SCH (09:13)
[2017-12-26] MEDS: CARVEDILOL 25 MG TABLET PO SCH ×2 (09:13→16:51)
[2017-12-26] MEDS: LACTOBACILLUS ACIDOPHILUS/BULGARICUS CAPLET PO SCH ×2 (09:13→21:24)
[2017-12-26] MEDS: PANTOPRAZOLE 40 MG TABLET PO SCH (09:13)
[2017-12-26] MEDS: ISOSORBIDE DINITRATE 10 MG TABLET PO SCH ×3 (09:16→21:26)
[2017-12-26] MEDS: INSULIN LISPRO 100 UNIT/ML SUBCUT SCH ×4 (09:16→21:21)
[2017-12-26 10:36] LABS: Hematocrit 28.3 VOL% (42.0-52.0)
[2017-12-26] MEDS: PRORENAL D PO SCH (12:25)
[2017-12-26 18:08] LABS: Hematocrit 29.7 VOL% (42.0-52.0); Hemoglobin 9.1 GM/DL (14.0-18.0)
[2017-12-26] MEDS ORDERED: INSULIN GLARGINE 100 UNIT/ML SUBCUT SCH (21:00)
[2017-12-26] MEDS: PREGABALIN 50 MG CAPSULE PO SCH (21:25)
[2017-12-26] MEDS: ATORVASTATIN 40 MG TABLET PO SCH (21:25)
[2017-12-27 07:49] VITALS: BP 156/72
[2017-12-27] MEDS: INSULIN LISPRO 100 UNIT/ML SUBCUT SCH (08:39)
[2017-12-27] MEDS: LOSARTAN 50 MG TABLET PO SCH (08:39)
[2017-12-27] MEDS: CALCIUM ACETATE 667 MG CAPSULE PO SCH (08:39)
[2017-12-27] MEDS: ISOSORBIDE DINITRATE 10 MG TABLET PO SCH (08:40)
[2017-12-27] MEDS: LACTOBACILLUS ACIDOPHILUS/BULGARICUS CAPLET PO SCH (08:40)
[2017-12-27] MEDS: PANTOPRAZOLE 40 MG TABLET PO SCH (08:40)
[2017-12-27] MEDS: amLODIPine 5 MG TABLET PO SCH (08:41)
[2017-12-27] MEDS: DOXYCYCLINE HYCLATE 100 MG CAPSULE PO SCH (08:41)
== END 2017-12-27 11:22 | disposition home health service (06) | DRG 377 ==
LOC: N.ED 17:06 → N.EDINP 22:34 → SUATTDRO 22:35 → N.TELEN 23:04
PROVIDERS: ADMIT Internal Medicine; ATTEND Hospitalist

== ENCOUNTER 2018-02-23 09:19 | Inpatient (IN) ==
[2018-02-23 10:56] LABS: Basophils % 0.5 % (0.0-0.8); Eosinophils # 0.3 10*3/uL (0.0-0.87); Eosinophils % 2.8 % (0.00-10.9); Hematocrit 18.1 VOL% (42.0-52.0); Immature Granulocytes % 0.8 %; Immature Granulocytes Absolute 0.07 #; Lymphocytes # 1.1 10*3/uL (1.4-4.0); Lymphocytes % 12.4 % (21.2-54.2); Mean Corpuscular HGB Conc 30.4 GM/DL (32-36); Mean Corpuscular Hemoglobin 27 PG (27-34); Mean Corpuscular Volume 89.6 FL (87-102); Mean Platelet Volume 12.9 FL (9.6-12.0); Monocytes # 1.2 10*3/uL (0.11-0.8); Monocytes % 13.3 % (1.7-12.7); Neutrophils # 6.2 10*3/uL (1.4-7.4); Neutrophils % 70.2 % (38.7-73.9); Platelet Count 152 T/CUMM (130-400); Red Blood Count 2.02 MC/CUMM (3.8-5.5); Red Cell Distribution Width 19.4 % (9.3-17.3); White Blood Count 8.8 T/CUMM (4-12)
[2018-02-23 11:00] LABS: Hemoglobin 5.5 GM/DL (14.0-18.0)
[2018-02-23] MEDS ORDERED: SODIUM CHLORIDE 0.9% 1,000 ML IV PRN ×2 (11:07→11:45)
[2018-02-23 11:21] LABS: Albumin 2.8 G/DL (3.4-5.0); Bilirubin,Total 0.9 MG/DL (0.2-1.0); Osmolality,Calculated 292.4 MOS/KG (273-304); Potassium 4.2 MMOL/L (3.5-5.1)
[2018-02-23] MEDS ORDERED: ACETAMINOPHEN 325 MG TABLET PO PRN (11:39)
[2018-02-23] MEDS ORDERED: DEXTROSE 50% 25 GM/50 ML VIAL IV PRN (11:42)
[2018-02-23] MEDS ORDERED: GLUCAGON 1 MG VIAL IM PRN (11:42)
[2018-02-23 15:07] LABS: Hemoglobin 4.9 GM/DL (14.0-18.0)
[2018-02-23] MEDS: INSULIN LISPRO 100 UNIT/ML SUBCUT SCH ×2 (15:48→20:36)
[2018-02-23] MEDS: ISOSORBIDE DINITRATE 20 MG TABLET PO SCH ×2 (16:37→22:42)
[2018-02-23] MEDS: CALCIUM ACETATE 667 MG CAPSULE PO SCH (16:38)
[2018-02-23] MEDS ORDERED: CARVEDILOL 25 MG TABLET PO SCH (17:00)
[2018-02-23 19:52] LABS: ABG Base Excess 4.4 MMOL/L (-2.5-2.5); ABG HCO3 28.4 MMOL/L (20-26); ABG Oxygen Saturation 95.2 % (95-100); ABG PCO2 37.9 MM HG (35-48); ABG PO2 69.9 MM HG (80-95); ABG TCO2 27.3 MMOL/L (23-27)
[2018-02-23 19:54] LABS: Basophils % 0.5 % (0.0-0.8); Eosinophils # 0.2 10*3/uL (0.0-0.87); Eosinophils % 2.8 % (0.00-10.9); Immature Granulocytes % 0.5 %; Immature Granulocytes Absolute 0.04 #; Lymphocytes # 1.4 10*3/uL (1.4-4.0); Lymphocytes % 17.4 % (21.2-54.2); Mean Corpuscular HGB Conc 30.5 GM/DL (32-36); Mean Corpuscular Hemoglobin 27 PG (27-34); Mean Corpuscular Volume 89.1 FL (87-102); Monocytes # 1.1 10*3/uL (0.11-0.8); Monocytes % 14.1 % (1.7-12.7); Neutrophils # 5.1 10*3/uL (1.4-7.4); Neutrophils % 64.7 % (38.7-73.9); Platelet Count 128 T/CUMM (130-400); Red Blood Count 1.84 MC/CUMM (3.8-5.5); Red Cell Distribution Width 17.6 % (9.3-17.3); White Blood Count 7.9 T/CUMM (4-12)
[2018-02-23] MEDS ORDERED: SODIUM CHLORIDE 0.9% 250 ML IV ONE (19:57)
[2018-02-23 19:58] LABS: Hematocrit 16.4 VOL% (42.0-52.0)
[2018-02-23] MEDS: ONDANSETRON 4 MG/2 ML VIAL IV PRN (20:08)
[2018-02-23 20:09] LABS: Calcium 7.6 MG/DL (8.5-10.1); Osmolality,Calculated 295.3 MOS/KG (273-304); Potassium 4.3 MMOL/L (3.5-5.1)
[2018-02-23] MEDS ORDERED: CALCIUM GLUCONATE 1,000 MG in SODIUM CHLORIDE 0.9% 100 ML IV ONE (20:15)
[2018-02-23] MEDS: PANTOPRAZOLE INJ 200 MG in SODIUM CHLORIDE 0.9% 250 ML IV SCH (20:32)
[2018-02-23] MEDS ORDERED: PREGABALIN 100 MG CAPSULE PO SCH (21:00)
[2018-02-23] MEDS: INSULIN GLARGINE 100 UNIT/ML SUBCUT SCH (22:41)
[2018-02-24 04:50] LABS: Basophils % 0.6 % (0.0-0.8); Eosinophils # 0.1 10*3/uL (0.0-0.87); Eosinophils % 1.3 % (0.00-10.9); Hematocrit 18.3 VOL% (42.0-52.0); Immature Granulocytes % 0.8 %; Immature Granulocytes Absolute 0.06 #; Lymphocytes % 13.4 % (21.2-54.2); Mean Corpuscular HGB Conc 31.7 GM/DL (32-36); Mean Corpuscular Hemoglobin 27 PG (27-34); Mean Corpuscular Volume 86.3 FL (87-102); Mean Platelet Volume 12.9 FL (9.6-12.0); Monocytes # 0.9 10*3/uL (0.11-0.8); Monocytes % 12.4 % (1.7-12.7); Neutrophils # 5.2 10*3/uL (1.4-7.4); Neutrophils % 71.5 % (38.7-73.9); Platelet Count 107 T/CUMM (130-400); Red Blood Count 2.12 MC/CUMM (3.8-5.5); Red Cell Distribution Width 17.4 % (9.3-17.3); White Blood Count 7.2 T/CUMM (4-12)
[2018-02-24 04:52] LABS: Hemoglobin 5.8 GM/DL (14.0-18.0)
[2018-02-24 05:02] LABS: Calcium 7.9 MG/DL (8.5-10.1); Osmolality,Calculated 295.5 MOS/KG (273-304); Potassium 4.7 MMOL/L (3.5-5.1)
[2018-02-24] MEDS ORDERED: CALCIUM GLUCONATE 1,000 MG in SODIUM CHLORIDE 0.9% 100 ML IV ONE (06:50)
[2018-02-24] MEDS: CALCIUM ACETATE 667 MG CAPSULE PO SCH ×3 (07:58→16:52)
[2018-02-24] MEDS: INSULIN LISPRO 100 UNIT/ML SUBCUT SCH ×4 (07:58→20:00)
[2018-02-24] MEDS: ONDANSETRON 4 MG/2 ML VIAL IV PRN (08:26)
[2018-02-24] MEDS: ISOSORBIDE DINITRATE 20 MG TABLET PO SCH ×3 (08:44→20:11)
[2018-02-24] MEDS: MULTIVITAMIN (BEROCCA) TABLET PO SCH (08:44)
[2018-02-24] MEDS: ATORVASTATIN 40 MG TABLET PO SCH (08:44)
[2018-02-24] MEDS ORDERED: LOSARTAN 50 MG TABLET PO SCH (09:00)
[2018-02-24] MEDS ORDERED: amLODIPine 5 MG TABLET PO SCH (09:00)
[2018-02-24] MEDS ORDERED: PANTOPRAZOLE 40 MG TABLET PO SCH (09:00)
[2018-02-24 10:07] LABS: Hematocrit 20.1 VOL% (42.0-52.0)
[2018-02-24 10:13] LABS: Hemoglobin 6.4 GM/DL (14.0-18.0)
[2018-02-24 10:16] LABS: INR 1.2; PT Patient Result 12.9 SECS; Partial Thromboplastin Time 30.1 SECS (0-40)
[2018-02-24 10:18] LABS: INR 1.2; PT Patient Result 12.7 SECS; Partial Thromboplastin Time 30.4 SECS (0-40)
[2018-02-24] MEDS ORDERED: POLYETHYLENE GLYCOL POWDER 255 GM BOTTLE PO ONE (12:00)
[2018-02-24 14:13] LABS: Hematocrit 21.4 VOL% (42.0-52.0); Hemoglobin 6.9 GM/DL (14.0-18.0)
[2018-02-24] MEDS ORDERED: SODIUM CHLORIDE 0.9% 1,000 ML IV PRN ×3 (14:28→19:01)
[2018-02-24 19:21] LABS: Hematocrit 20.6 VOL% (42.0-52.0); Hemoglobin 6.7 GM/DL (14.0-18.0)
[2018-02-24] MEDS: INSULIN GLARGINE 100 UNIT/ML SUBCUT SCH (20:01)
[2018-02-24] MEDS: PANTOPRAZOLE INJ 200 MG in SODIUM CHLORIDE 0.9% 250 ML IV SCH (20:11)
[2018-02-25 05:43] LABS: Basophils # 0.1 10*3/uL (0.0-0.2); Basophils % 0.8 % (0.0-0.8); Eosinophils # 0.3 10*3/uL (0.0-0.87); Eosinophils % 4.6 % (0.00-10.9); Hematocrit 23.6 VOL% (42.0-52.0); Immature Granulocytes % 0.7 %; Immature Granulocytes Absolute 0.04 #; Lymphocytes % 17.5 % (21.2-54.2); Mean Corpuscular HGB Conc 33.9 GM/DL (32-36); Mean Corpuscular Hemoglobin 29 PG (27-34); Mean Corpuscular Volume 85.8 FL (87-102); Mean Platelet Volume 12.4 FL (9.6-12.0); Monocytes # 0.8 10*3/uL (0.11-0.8); Monocytes % 12.6 % (1.7-12.7); Neutrophils # 3.8 10*3/uL (1.4-7.4); Neutrophils % 63.8 % (38.7-73.9); Platelet Count 99 T/CUMM (130-400); Red Blood Count 2.75 MC/CUMM (3.8-5.5); Red Cell Distribution Width 16.4 % (9.3-17.3); White Blood Count 5.9 T/CUMM (4-12)
[2018-02-25 06:06] LABS: Albumin 2.6 G/DL (3.4-5.0); Bilirubin,Total 1.4 MG/DL (0.2-1.0); Calcium 7.7 MG/DL (8.5-10.1); Osmolality,Calculated 292.7 MOS/KG (273-304); Potassium 4.7 MMOL/L (3.5-5.1); Total Protein 7.2 G/DL (6.4-8.3)
[2018-02-25 06:17] LABS: Band Neutrophils 6 % (0-10); Eosinophils 3 % (0-10); Lymphocytes 15 % (20-55); Segmented Neutrophils 68 % (50-85); Total Cells Counted 100
[2018-02-25 06:18] LABS: Anisocytosis 1+
[2018-02-25] MEDS: INSULIN LISPRO 100 UNIT/ML SUBCUT SCH ×4 (07:42→20:33)
[2018-02-25] MEDS: ISOSORBIDE DINITRATE 20 MG TABLET PO SCH ×4 (08:27→20:28)
[2018-02-25] MEDS: ATORVASTATIN 40 MG TABLET PO SCH (08:27)
[2018-02-25] MEDS: CALCIUM ACETATE 667 MG CAPSULE PO SCH ×3 (08:27→17:20)
[2018-02-25] MEDS: MULTIVITAMIN (BEROCCA) TABLET PO SCH (08:27)
[2018-02-25] MEDS ORDERED: LORazepam 2 MG/1 ML VIAL ONE (10:17)
[2018-02-25] MEDS ORDERED: MORPHINE 4 MG/1 ML VIAL ONE (10:17)
[2018-02-25 15:06] LABS: Hematocrit 25.6 VOL% (42.0-52.0); Hemoglobin 8.5 GM/DL (14.0-18.0)
[2018-02-25] MEDS ORDERED: SODIUM CHLORIDE 0.9% 1,000 ML IV PRN (15:41)
[2018-02-25] MEDS ORDERED: fentaNYL 100 MCG/2 ML VIAL ONE (17:46)
[2018-02-25] MEDS ORDERED: PROPOFOL 200 MG/20 ML VIAL IV ONE (17:52)
[2018-02-25] MEDS ORDERED: CALCIUM CHLORIDE 1,000 MG/10 ML VIAL IV ONE (17:52)
[2018-02-25] MEDS ORDERED: SEVOFLURANE 1 UNIT/15 MINUTE INH ONE (17:53)
[2018-02-25] MEDS ORDERED: SUCCINYLCHOLINE 200 MG/10 ML VIAL ONE (17:53)
[2018-02-25] MEDS ORDERED: SODIUM BICARBONATE 50 MEQ/50 ML SYRINGE IV ONE (17:53)
[2018-02-25] MEDS ORDERED: ETOMIDATE 40 MG/20 ML VIAL IV ONE (17:53)
[2018-02-25] MEDS ORDERED: PHENYLEPHRINE 1 MG/10 ML SYRINGE IV ONE (17:53)
[2018-02-25] MEDS ORDERED: GLYCOPYRROLATE 0.4 MG/2 ML VIAL ONE (17:53)
[2018-02-25] MEDS: PANTOPRAZOLE INJ 200 MG in SODIUM CHLORIDE 0.9% 250 ML IV SCH (20:32)
[2018-02-25] MEDS: INSULIN GLARGINE 100 UNIT/ML SUBCUT SCH (20:35)
[2018-02-26] MEDS: hydrALAZINE 20 MG/1 ML VIAL IV PRN ×2 (00:14→21:36)
[2018-02-26 03:56] LABS: Basophils # 0.1 10*3/uL (0.0-0.2); Basophils % 0.9 % (0.0-0.8); Eosinophils # 0.2 10*3/uL (0.0-0.87); Eosinophils % 3.5 % (0.00-10.9); Hematocrit 24.4 VOL% (42.0-52.0); Immature Granulocytes % 0.5 %; Immature Granulocytes Absolute 0.03 #; Lymphocytes # 1.1 10*3/uL (1.4-4.0); Lymphocytes % 16.8 % (21.2-54.2); Mean Corpuscular HGB Conc 32.8 GM/DL (32-36); Mean Corpuscular Hemoglobin 29 PG (27-34); Mean Corpuscular Volume 87.5 FL (87-102); Mean Platelet Volume 12.3 FL (9.6-12.0); Monocytes # 0.6 10*3/uL (0.11-0.8); Neutrophils # 4.4 10*3/uL (1.4-7.4); Neutrophils % 68.3 % (38.7-73.9); Platelet Count 104 T/CUMM (130-400); Red Blood Count 2.79 MC/CUMM (3.8-5.5); Red Cell Distribution Width 15.9 % (9.3-17.3); White Blood Count 6.4 T/CUMM (4-12)
[2018-02-26 04:24] LABS: Albumin 2.8 G/DL (3.4-5.0); Bilirubin,Total 1.3 MG/DL (0.2-1.0); Calcium 7.9 MG/DL (8.5-10.1); Osmolality,Calculated 287.4 MOS/KG (273-304); Total Protein 7.4 G/DL (6.4-8.3)
[2018-02-26] MEDS ORDERED: EPINEPHrine 1 MG/ML VIAL ONE (06:50)
[2018-02-26] MEDS: INSULIN LISPRO 100 UNIT/ML SUBCUT SCH ×4 (07:40→20:40)
[2018-02-26] MEDS: ISOSORBIDE DINITRATE 20 MG TABLET PO SCH ×3 (09:37→20:37)
[2018-02-26] MEDS: CALCIUM ACETATE 667 MG CAPSULE PO SCH ×4 (09:37→16:58)
[2018-02-26] MEDS: ATORVASTATIN 40 MG TABLET PO SCH (09:37)
[2018-02-26] MEDS: MULTIVITAMIN (BEROCCA) TABLET PO SCH (09:37)
[2018-02-26] MEDS: PREGABALIN 100 MG CAPSULE PO SCH (20:37)
[2018-02-26] MEDS: INSULIN GLARGINE 100 UNIT/ML SUBCUT SCH (20:40)
[2018-02-27 04:01] LABS: Basophils # 0.1 10*3/uL (0.0-0.2); Basophils % 0.8 % (0.0-0.8); Eosinophils # 0.2 10*3/uL (0.0-0.87); Eosinophils % 2.8 % (0.00-10.9); Hematocrit 25.1 VOL% (42.0-52.0); Hemoglobin 8.3 GM/DL (14.0-18.0); Immature Granulocytes % 0.5 %; Immature Granulocytes Absolute 0.03 #; Lymphocytes % 16.9 % (21.2-54.2); Mean Corpuscular HGB Conc 33.1 GM/DL (32-36); Mean Corpuscular Hemoglobin 29 PG (27-34); Mean Corpuscular Volume 86.9 FL (87-102); Mean Platelet Volume 12.7 FL (9.6-12.0); Monocytes # 0.7 10*3/uL (0.11-0.8); Monocytes % 11.8 % (1.7-12.7); Neutrophils # 4.1 10*3/uL (1.4-7.4); Neutrophils % 67.2 % (38.7-73.9); Platelet Count 128 T/CUMM (130-400); Red Blood Count 2.89 MC/CUMM (3.8-5.5); Red Cell Distribution Width 15.8 % (9.3-17.3); White Blood Count 6.1 T/CUMM (4-12)
[2018-02-27 04:47] LABS: Albumin 2.6 G/DL (3.4-5.0); Bilirubin,Total 1.2 MG/DL (0.2-1.0); Calcium 8.1 MG/DL (8.5-10.1); Osmolality,Calculated 280.8 MOS/KG (273-304); Total Protein 7.4 G/DL (6.4-8.3)
[2018-02-27] MEDS: INSULIN LISPRO 100 UNIT/ML SUBCUT SCH ×4 (08:27→20:34)
[2018-02-27] MEDS: CALCIUM ACETATE 667 MG CAPSULE PO SCH ×3 (08:43→16:56)
[2018-02-27] MEDS: PANTOPRAZOLE 40 MG VIAL IV SCH ×2 (08:43→20:41)
[2018-02-27] MEDS: MULTIVITAMIN (BEROCCA) TABLET PO SCH (08:43)
[2018-02-27] MEDS: ATORVASTATIN 40 MG TABLET PO SCH (08:43)
[2018-02-27] MEDS: ISOSORBIDE DINITRATE 20 MG TABLET PO SCH ×3 (08:43→20:20)
[2018-02-27] MEDS: hydrALAZINE 20 MG/1 ML VIAL IV PRN (09:22)
[2018-02-27] MEDS: PREGABALIN 100 MG CAPSULE PO SCH (20:20)
[2018-02-27] MEDS: INSULIN GLARGINE 100 UNIT/ML SUBCUT SCH (21:00)
[2018-02-28 06:01] LABS: Basophils % 0.7 % (0.0-0.8); Eosinophils # 0.2 10*3/uL (0.0-0.87); Eosinophils % 2.8 % (0.00-10.9); Hematocrit 25.1 VOL% (42.0-52.0); Hemoglobin 8.1 GM/DL (14.0-18.0); Immature Granulocytes % 0.5 %; Immature Granulocytes Absolute 0.03 #; Lymphocytes # 0.9 10*3/uL (1.4-4.0); Lymphocytes % 14.5 % (21.2-54.2); Mean Corpuscular HGB Conc 32.3 GM/DL (32-36); Mean Corpuscular Hemoglobin 29 PG (27-34); Mean Corpuscular Volume 88.7 FL (87-102); Mean Platelet Volume 12.8 FL (9.6-12.0); Monocytes # 0.6 10*3/uL (0.11-0.8); Neutrophils # 4.4 10*3/uL (1.4-7.4); Neutrophils % 71.5 % (38.7-73.9); Platelet Count 134 T/CUMM (130-400); Red Blood Count 2.83 MC/CUMM (3.8-5.5); Red Cell Distribution Width 15.9 % (9.3-17.3); White Blood Count 6.1 T/CUMM (4-12)
[2018-02-28] MEDS: MULTIVITAMIN (BEROCCA) TABLET PO SCH (09:11)
[2018-02-28] MEDS: ISOSORBIDE DINITRATE 20 MG TABLET PO SCH ×3 (09:11→20:44)
[2018-02-28] MEDS: CALCIUM ACETATE 667 MG CAPSULE PO SCH ×3 (09:11→16:55)
[2018-02-28] MEDS: ATORVASTATIN 40 MG TABLET PO SCH (09:12)
[2018-02-28] MEDS: INSULIN LISPRO 100 UNIT/ML SUBCUT SCH ×4 (09:13→20:45)
[2018-02-28] MEDS: PANTOPRAZOLE 40 MG VIAL IV SCH ×2 (09:15→20:00)
[2018-02-28] MEDS: CARVEDILOL 12.5 MG TABLET PO SCH (20:45)
[2018-02-28] MEDS: INSULIN GLARGINE 100 UNIT/ML SUBCUT SCH (20:45)
[2018-02-28] MEDS: PREGABALIN 100 MG CAPSULE PO SCH (20:45)
[2018-03-01 06:43] LABS: Basophils % 0.6 % (0.0-0.8); Eosinophils # 0.2 10*3/uL (0.0-0.87); Eosinophils % 3.6 % (0.00-10.9); Hematocrit 25.8 VOL% (42.0-52.0); Hemoglobin 7.9 GM/DL (14.0-18.0); Immature Granulocytes % 0.5 %; Immature Granulocytes Absolute 0.03 #; Mean Corpuscular HGB Conc 30.6 GM/DL (32-36); Mean Corpuscular Hemoglobin 28 PG (27-34); Mean Corpuscular Volume 91.2 FL (87-102); Mean Platelet Volume 12.6 FL (9.6-12.0); Monocytes # 0.7 10*3/uL (0.11-0.8); Monocytes % 10.1 % (1.7-12.7); Neutrophils # 4.6 10*3/uL (1.4-7.4); Neutrophils % 70.2 % (38.7-73.9); Platelet Count 146 T/CUMM (130-400); Red Blood Count 2.83 MC/CUMM (3.8-5.5); Red Cell Distribution Width 15.6 % (9.3-17.3); White Blood Count 6.6 T/CUMM (4-12)
[2018-03-01 06:50] LABS: Calcium 8.2 MG/DL (8.5-10.1); Osmolality,Calculated 291.8 MOS/KG (273-304); Potassium 4.6 MMOL/L (3.5-5.1)
[2018-03-01] MEDS ORDERED: EPINEPHrine 1 MG/ML VIAL ONE (08:02)
[2018-03-01 09:07] VITALS: BP 175/79
[2018-03-01] MEDS: INSULIN LISPRO 100 UNIT/ML SUBCUT SCH ×2 (10:04→12:56)
[2018-03-01] MEDS: ISOSORBIDE DINITRATE 20 MG TABLET PO SCH (10:05)
[2018-03-01] MEDS: CALCIUM ACETATE 667 MG CAPSULE PO SCH ×2 (10:05→12:56)
[2018-03-01] MEDS: ATORVASTATIN 40 MG TABLET PO SCH (10:06)
[2018-03-01] MEDS: MULTIVITAMIN (BEROCCA) TABLET PO SCH (10:06)
[2018-03-01] MEDS: CARVEDILOL 12.5 MG TABLET PO SCH (10:06)
[2018-03-01] MEDS: PANTOPRAZOLE 40 MG VIAL IV SCH (10:06)
[2018-03-01] MEDS ORDERED: VANCOMYCIN INJ 1,000 MG in SODIUM CHLORIDE 0.9% 250 ML IV PRN (11:11)
== END 2018-03-01 13:10 | disposition home health service (06) | DRG 393 ==
LOC: EDBD → EDUNIT# → N.ED 09:19 → N.EDINP 11:39 → SUATTDRO 11:39 → N.EDINP 13:16 → N.2E 13:26 → N.ICU 20:09 → N.2E 02-27 11:53
PROVIDERS: ADMIT Internal Medicine; ATTEND Internal Medicine

== ENCOUNTER 2018-04-07 17:54 | Observation (INO) ==
[2018-04-07] MEDS ORDERED: PANTOPRAZOLE 40 MG VIAL IV STA (18:41)
[2018-04-07] MEDS ORDERED: MORPHINE 4 MG/1 ML VIAL IV STA (18:41)
[2018-04-07] MEDS ORDERED: ALUM/MAG/SIMETH/LIDO VISC 1:1 30 ML BOTTLE PO STA (18:41)
[2018-04-07] MEDS ORDERED: ONDANSETRON 4 MG/2 ML VIAL IV STA (18:41)
[2018-04-07 18:55] LABS: Basophils % 0.4 % (0.0-0.8); Eosinophils # 0.1 10*3/uL (0.0-0.87); Eosinophils % 1.2 % (0.00-10.9); Hematocrit 22.9 VOL% (42.0-52.0); Hemoglobin 7.2 GM/DL (14.0-18.0); Immature Granulocytes % 0.5 %; Immature Granulocytes Absolute 0.04 #; Lymphocytes # 0.7 10*3/uL (1.4-4.0); Lymphocytes % 8.5 % (21.2-54.2); Mean Corpuscular HGB Conc 31.4 GM/DL (32-36); Mean Corpuscular Hemoglobin 27 PG (27-34); Mean Corpuscular Volume 86.7 FL (87-102); Mean Platelet Volume 13.3 FL (9.6-12.0); Monocytes # 0.8 10*3/uL (0.11-0.8); Monocytes % 9.9 % (1.7-12.7); Neutrophils # 6.1 10*3/uL (1.4-7.4); Neutrophils % 79.5 % (38.7-73.9); Platelet Count 164 T/CUMM (130-400); Red Blood Count 2.64 MC/CUMM (3.8-5.5); Red Cell Distribution Width 17.3 % (9.3-17.3); White Blood Count 7.7 T/CUMM (4-12)
[2018-04-07 19:19] LABS: Albumin 2.9 G/DL (3.4-5.0); Bilirubin,Total 1.2 MG/DL (0.2-1.0); Calcium 8.3 MG/DL (8.5-10.1); Osmolality,Calculated 286.1 MOS/KG (273-304); Potassium 3.9 MMOL/L (3.5-5.1); Total Protein 8.6 G/DL (6.4-8.3)
[2018-04-07 20:07] LABS: Lactic Acid 0.8 MMOL/L (0.4-2.0)
[2018-04-07] MEDS ORDERED: DEXTROSE 50% 25 GM/50 ML VIAL IV PRN (21:47)
[2018-04-07] MEDS ORDERED: GLUCAGON 1 MG VIAL IM PRN (21:47)
[2018-04-07] MEDS ORDERED: SODIUM CHLORIDE 0.9% 1,000 ML IV PRN (21:48)
[2018-04-08] MEDS: HEPARIN 5,000 UNIT/1 ML VIAL SUBCUT SCH ×3 (03:14→18:10)
[2018-04-08 05:08] LABS: Hematocrit 24.3 VOL% (42.0-52.0); Hemoglobin 7.6 GM/DL (14.0-18.0)
[2018-04-08 05:13] LABS: Basophils % 0.4 % (0.0-0.8); Eosinophils # 0.1 10*3/uL (0.0-0.87); Eosinophils % 1.4 % (0.00-10.9); Hematocrit 23.8 VOL% (42.0-52.0); Hemoglobin 7.4 GM/DL (14.0-18.0); Immature Granulocytes % 0.5 %; Immature Granulocytes Absolute 0.04 #; Lymphocytes # 0.8 10*3/uL (1.4-4.0); Lymphocytes % 9.9 % (21.2-54.2); Mean Corpuscular HGB Conc 31.1 GM/DL (32-36); Mean Corpuscular Hemoglobin 28 PG (27-34); Mean Corpuscular Volume 89.5 FL (87-102); Mean Platelet Volume 13.2 FL (9.6-12.0); Monocytes # 0.9 10*3/uL (0.11-0.8); Neutrophils # 6.4 10*3/uL (1.4-7.4); Neutrophils % 76.8 % (38.7-73.9); Platelet Count 182 T/CUMM (130-400); Red Blood Count 2.66 MC/CUMM (3.8-5.5); Red Cell Distribution Width 17.2 % (9.3-17.3); White Blood Count 8.3 T/CUMM (4-12)
[2018-04-08 05:50] LABS: Albumin 2.8 G/DL (3.4-5.0); Bilirubin,Total 1.7 MG/DL (0.2-1.0); Calcium 8.4 MG/DL (8.5-10.1); Potassium 3.7 MMOL/L (3.5-5.1); Total Protein 9.1 G/DL (6.4-8.3)
[2018-04-08] MEDS: INSULIN LISPRO 100 UNIT/ML SUBCUT SCH ×3 (08:23→18:06)
[2018-04-08] MEDS: CALCIUM ACETATE 667 MG CAPSULE PO SCH ×3 (08:59→18:07)
[2018-04-08] MEDS ORDERED: PANTOPRAZOLE 40 MG TABLET PO SCH (09:00)
[2018-04-08] MEDS ORDERED: CARVEDILOL 25 MG TABLET PO SCH (09:00)
[2018-04-08] MEDS ORDERED: ASPIRIN EC 81 MG TABLET PO SCH (09:00)
[2018-04-08] MEDS ORDERED: INSULIN GLARGINE 100 UNIT/ML SUBCUT SCH (09:00)
[2018-04-08] MEDS ORDERED: amLODIPine 5 MG TABLET PO SCH (09:00)
[2018-04-08] MEDS ORDERED: NON-FORMULARY MEDICATION (Prorenal D 1 TABLET) PO SCH (09:00)
[2018-04-08] MEDS ORDERED: ATORVASTATIN 40 MG TABLET PO SCH (09:00)
[2018-04-08] MEDS ORDERED: LOSARTAN 50 MG TABLET PO SCH (09:00)
[2018-04-08 12:20] VITALS: BP 135/99
[2018-04-08] MEDS ORDERED: GLUCAGON 1 MG VIAL IM PRN (12:49)
[2018-04-08] MEDS ORDERED: DEXTROSE 50% 25 GM/50 ML VIAL IV PRN (12:49)
[2018-04-08] MEDS ORDERED: ACETIC ACID 0.25% IRRIGATION 1,000 ML BOTTLE IRRIG SCH (13:00)
[2018-04-08] MEDS: ISOSORBIDE DINITRATE 10 MG TABLET PO SCH ×2 (14:49→18:06)
[2018-04-08] MEDS ORDERED: PREGABALIN 100 MG CAPSULE PO SCH (21:00)
[2018-04-09 07:50] LABS: Total Protein (Chem) 9.2 G/DL (6.4-8.3)
[2018-04-12 09:32] LABS: Albumin (SPE) 3.7 G/DL (3.2-5.3); Albumin (SPE) Rel % 40.8 %; Alpha 1 (SPE) 0.5 G/DL (0.1-0.4); Alpha 1 (SPE) Rel % 5.3 %; Alpha 2 (SPE) 1.1 G/DL (0.4-1.0); Alpha 2 (SPE) Rel % 11.9 %; Gamma (SPE) 2.9 G/DL (0.7-1.7)
== END 2018-04-08 21:14 | disposition home or self-care (01) ==
LOC: N.EDINP 17:54 → N.ED 17:54 → SUATTDRO 20:17 → N.5E 20:53
PROVIDERS: ADMIT Internal Medicine; ATTEND Internal Medicine

== ENCOUNTER 2018-05-27 12:17 | Inpatient (IN) ==
[2018-05-27] MEDS ORDERED: GLUCAGON 1 MG VIAL IM PRN (15:35)
[2018-05-27] MEDS ORDERED: DEXTROSE 50% 25 GM/50 ML VIAL IV PRN (15:35)
[2018-05-27] MEDS ORDERED: SODIUM CHLORIDE 0.9% 500 ML IV ONE ×2 (15:35)
[2018-05-27] MEDS ORDERED: ASPIRIN CHEW 81 MG TABLET PO ONE (15:36)
[2018-05-27] MEDS ORDERED: NITROGLYCERIN SL 0.4 MG TABLET SL PRN (15:36)
[2018-05-27 16:12] LABS: Allen Test Positive
[2018-05-27 16:13] LABS: ABG Base Excess 5.8 MMOL/L (-2.5-2.5); ABG HCO3 29.7 MMOL/L (20-26); ABG PCO2 39.8 MM HG (35-48); ABG PH 7.481 (7.35-7.45)
[2018-05-27] MEDS: SODIUM CHLORIDE 0.9% 1,000 ML IV SCH ×2 (16:28→22:26)
[2018-05-27] MEDS: INSULIN LISPRO 100 UNIT/ML SUBCUT SCH ×2 (16:37→20:16)
[2018-05-27 16:40] LABS: Basophils # 0.1 10*3/uL (0.0-0.2); Basophils % 0.8 % (0.0-0.8); Eosinophils # 0.1 10*3/uL (0.0-0.87); Hematocrit 21.7 VOL% (42.0-52.0); Immature Granulocytes % 2.3 %; Lymphocytes # 1.5 10*3/uL (1.4-4.0); Lymphocytes % 17.3 % (21.2-54.2); Mean Corpuscular HGB Conc 29.5 GM/DL (32-36); Mean Corpuscular Hemoglobin 28 PG (27-34); Mean Corpuscular Volume 93.1 FL (87-102); Mean Platelet Volume 13.6 FL (9.6-12.0); NRBC # 0.02 10*3/uL; Neutrophils # 5.7 10*3/uL (1.4-7.4); Neutrophils % 66.6 % (38.7-73.9); Platelet Count 204 T/CUMM (130-400); Red Blood Count 2.33 MC/CUMM (3.8-5.5); White Blood Count 8.6 T/CUMM (4-12)
[2018-05-27 16:46] LABS: Hemoglobin 6.4 GM/DL (14.0-18.0)
[2018-05-27 17:00] LABS: Calcium 9.3 MG/DL (8.5-10.1); Osmolality,Calculated 282.2 MOS/KG (273-304); Potassium 4.5 MMOL/L (3.5-5.1)
[2018-05-27 17:02] LABS: Albumin 2.5 G/DL (3.4-5.0); Bilirubin,Total 0.6 MG/DL (0.2-1.0); Calcium 9.1 MG/DL (8.5-10.1); Osmolality,Calculated 279.4 MOS/KG (273-304); Potassium 4.4 MMOL/L (3.5-5.1); Total Protein 8.7 G/DL (6.4-8.3)
[2018-05-27] MEDS ORDERED: SODIUM CHLORIDE 0.9% 1,000 ML IV PRN (17:03)
[2018-05-27 17:10] LABS: Thyroid Stimulating Hormone 3.76 uIU/ml (0.358-3.74)
[2018-05-27 17:11] LABS: Lactic Acid 3.3 MMOL/L (0.4-2.0)
[2018-05-27] MEDS ORDERED: ALUM/MAG/SIMETH/LIDO VISC 1:1 30 ML BOTTLE PO ONE (20:06)
[2018-05-27 22:29] LABS: Hematocrit 16.5 VOL% (42.0-52.0)
[2018-05-27 22:43] LABS: Troponin I 0.019 NG/ML (0.00-0.045)
[2018-05-27 23:26] LABS: Hematocrit 23.2 VOL% (42.0-52.0)
[2018-05-27 23:33] LABS: Hemoglobin 7.2 GM/DL (14.0-18.0)
[2018-05-28 06:16] LABS: Calcium 7.1 MG/DL (8.5-10.1); Osmolality,Calculated 286.5 MOS/KG (273-304); Potassium 4.1 MMOL/L (3.5-5.1); Risk Ratio 3.74; VLDL CHOLESTEROL 18.8 MG/DL
[2018-05-28] MEDS: SODIUM CHLORIDE 0.9% 1,000 ML IV SCH ×2 (06:20→09:55)
[2018-05-28 06:28] LABS: Troponin I < 0.015 NG/ML (0.00-0.045)
[2018-05-28 06:56] LABS: Hemoglobin 7.5 GM/DL (14.0-18.0)
[2018-05-28 07:24] LABS: Basophils # 0.1 10*3/uL (0.0-0.2); Eosinophils # 0.1 10*3/uL (0.0-0.87); Eosinophils % 0.7 % (0.00-10.9); Hematocrit 24.8 VOL% (42.0-52.0); Hemoglobin 7.5 GM/DL (14.0-18.0); Immature Granulocytes % 1.4 %; Lymphocytes # 1.5 10*3/uL (1.4-4.0); Lymphocytes % 20.9 % (21.2-54.2); Mean Corpuscular HGB Conc 30.2 GM/DL (32-36); Mean Corpuscular Hemoglobin 28 PG (27-34); Mean Corpuscular Volume 92.2 FL (87-102); Mean Platelet Volume 14.2 FL (9.6-12.0); Monocytes # 0.8 10*3/uL (0.11-0.8); NRBC # 0.03 10*3/uL; Neutrophils # 4.6 10*3/uL (1.4-7.4); Platelet Count 197 T/CUMM (130-400); Red Blood Count 2.69 MC/CUMM (3.8-5.5); Red Cell Distribution Width 18.5 % (9.3-17.3)
[2018-05-28] MEDS: PANTOPRAZOLE 40 MG TABLET PO SCH (09:46)
[2018-05-28] MEDS: ATORVASTATIN 40 MG TABLET PO SCH (09:46)
[2018-05-28] MEDS: INSULIN LISPRO 100 UNIT/ML SUBCUT SCH ×4 (09:46→20:17)
[2018-05-28] MEDS: ONDANSETRON 4 MG/2 ML VIAL IV PRN ×3 (09:53→20:17)
[2018-05-28] MEDS ORDERED: LIDOCAINE/PRILOCAINE CREAM 5 GM TUBE TOP PRN (10:48)
[2018-05-28] MEDS ORDERED: SKIN HEALING OINT (AQUAPHOR) 50 GM TUBE TOP PRN (12:00)
[2018-05-28] MEDS: ALUM/MAG/SIMETH/LIDO VISC 1:1 30 ML BOTTLE PO PRN (13:07)
[2018-05-28] MEDS ORDERED: EPOETIN ALFA 10,000 UNIT/1 ML VIAL IV PRN (14:44)
[2018-05-28] MEDS: COLCHICINE 0.6 MG TABLET PO SCH (16:45)
[2018-05-28] MEDS: MORPHINE 4 MG/1 ML VIAL IV PRN (17:55)
[2018-05-28 19:49] LABS: Hematocrit 29.4 VOL% (42.0-52.0)
[2018-05-29] MEDS: MORPHINE 4 MG/1 ML VIAL IV PRN (04:29)
[2018-05-29] MEDS: ALUM/MAG/SIMETH/LIDO VISC 1:1 30 ML BOTTLE PO PRN ×2 (04:30→20:09)
[2018-05-29 06:03] LABS: Basophils # 0.1 10*3/uL (0.0-0.2); Basophils % 1.3 % (0.0-0.8); Eosinophils # 0.1 10*3/uL (0.0-0.87); Eosinophils % 0.7 % (0.00-10.9); Hematocrit 30.1 VOL% (42.0-52.0); Hemoglobin 9.2 GM/DL (14.0-18.0); Immature Granulocytes % 1.4 %; Lymphocytes # 1.3 10*3/uL (1.4-4.0); Lymphocytes % 17.8 % (21.2-54.2); Mean Corpuscular HGB Conc 30.6 GM/DL (32-36); Mean Corpuscular Hemoglobin 28 PG (27-34); Mean Corpuscular Volume 90.7 FL (87-102); Mean Platelet Volume 13.7 FL (9.6-12.0); Monocytes # 0.8 10*3/uL (0.11-0.8); Monocytes % 10.7 % (1.7-12.7); NRBC # 0.07 10*3/uL; Neutrophils # 4.8 10*3/uL (1.4-7.4); Neutrophils % 68.1 % (38.7-73.9); Platelet Count 216 T/CUMM (130-400); Red Blood Count 3.32 MC/CUMM (3.8-5.5); Red Cell Distribution Width 19.1 % (9.3-17.3); White Blood Count 7.1 T/CUMM (4-12)
[2018-05-29 06:40] LABS: Calcium 9.1 MG/DL (8.5-10.1); Osmolality,Calculated 273.5 MOS/KG (273-304); Potassium 4.4 MMOL/L (3.5-5.1)
[2018-05-29] MEDS: PANTOPRAZOLE 40 MG TABLET PO SCH ×2 (09:15→20:13)
[2018-05-29] MEDS: COLCHICINE 0.6 MG TABLET PO SCH (09:15)
[2018-05-29] MEDS: ATORVASTATIN 40 MG TABLET PO SCH (09:15)
[2018-05-29] MEDS: INSULIN LISPRO 100 UNIT/ML SUBCUT SCH ×3 (09:16→17:06)
[2018-05-29] MEDS: ALUMINUM/MAGNES/SIMETH MAX STR 30 ML UDCUP PO PRN ×2 (09:16→15:18)
[2018-05-29] MEDS: ONDANSETRON 4 MG/2 ML VIAL IV PRN (20:09)
[2018-05-30 05:20] LABS: Basophils # 0.1 10*3/uL (0.0-0.2); Basophils % 1.1 % (0.0-0.8); Eosinophils % 0.5 % (0.00-10.9); Hematocrit 30.5 VOL% (42.0-52.0); Hemoglobin 9.2 GM/DL (14.0-18.0); Immature Granulocytes % 0.9 %; Immature Granulocytes Absolute 0.07 #; Lymphocytes # 1.5 10*3/uL (1.4-4.0); Lymphocytes % 19.8 % (21.2-54.2); Mean Corpuscular HGB Conc 30.2 GM/DL (32-36); Mean Corpuscular Hemoglobin 28 PG (27-34); Mean Corpuscular Volume 91.6 FL (87-102); Mean Platelet Volume 13.4 FL (9.6-12.0); Monocytes # 0.8 10*3/uL (0.11-0.8); Monocytes % 10.7 % (1.7-12.7); NRBC # 0.04 10*3/uL; Neutrophils # 5.1 10*3/uL (1.4-7.4); Platelet Count 227 T/CUMM (130-400); Red Blood Count 3.33 MC/CUMM (3.8-5.5); Red Cell Distribution Width 19.7 % (9.3-17.3); White Blood Count 7.6 T/CUMM (4-12)
[2018-05-30 05:55] LABS: Calcium 8.9 MG/DL (8.5-10.1); Osmolality,Calculated 277.7 MOS/KG (273-304); Potassium 4.8 MMOL/L (3.5-5.1)
[2018-05-30] MEDS: INSULIN LISPRO 100 UNIT/ML SUBCUT SCH ×3 (05:55→11:00)
[2018-05-30] MEDS: COLCHICINE 0.6 MG TABLET PO SCH (08:20)
[2018-05-30] MEDS: PANTOPRAZOLE 40 MG TABLET PO SCH (08:20)
[2018-05-30] MEDS: ATORVASTATIN 40 MG TABLET PO SCH (08:20)
[2018-05-30 10:42] VITALS: BP 124/77
[2018-05-30] MEDS: ALUM/MAG/SIMETH/LIDO VISC 1:1 30 ML BOTTLE PO PRN (10:47)
== END 2018-05-30 13:18 | disposition swing bed (61) | DRG 682 ==
LOC: N.2E → SUATTDRO 14:41 → N.CC 15:59 → SUATTDRO 05-28 08:33 → N.5E 05-28 18:30
PROVIDERS: ADMIT Internal Medicine; ATTEND Family Medicine

== ENCOUNTER 2018-07-17 10:38 | Inpatient (IN) ==
[2018-07-17] MEDS ORDERED: LEVOFLOXACIN INJ 750 MG in PREMIX 1 EACH IV STA (11:51)
[2018-07-17] MEDS ORDERED: methylPREDNISolone SOD SUC 125 MG/2 ML VIAL IV STA (11:51)
[2018-07-17] MEDS ORDERED: ALBUTEROL NEB SOLN 5 MG/ML 20 ML/BOTTLE CONT NEB STA (11:51)
[2018-07-17 12:00] LABS: Basophils # 0.1 10*3/uL (0.0-0.2); Basophils % 0.9 % (0.0-0.8); Eosinophils # 0.2 10*3/uL (0.0-0.87); Eosinophils % 2.8 % (0.00-10.9); Hematocrit 25.7 VOL% (42.0-52.0); Hemoglobin 7.4 GM/DL (14.0-18.0); Immature Granulocytes % 0.5 %; Immature Granulocytes Absolute 0.04 #; Lymphocytes # 1.1 10*3/uL (1.4-4.0); Lymphocytes % 14.2 % (21.2-54.2); Mean Corpuscular HGB Conc 28.8 GM/DL (32-36); Mean Corpuscular Hemoglobin 26 PG (27-34); Mean Corpuscular Volume 90.2 FL (87-102); Mean Platelet Volume 12.4 FL (9.6-12.0); Monocytes # 0.9 10*3/uL (0.11-0.8); Monocytes % 11.2 % (1.7-12.7); Neutrophils # 5.3 10*3/uL (1.4-7.4); Neutrophils % 70.4 % (38.7-73.9); Platelet Count 235 T/CUMM (130-400); Red Blood Count 2.85 MC/CUMM (3.8-5.5); Red Cell Distribution Width 18.5 % (9.3-17.3); White Blood Count 7.6 T/CUMM (4-12)
[2018-07-17 12:11] LABS: INR 1.3; PT Patient Result 13.7 SECS
[2018-07-17 12:21] LABS: Alanine Aminotransferase 21 U/L (16-61); Albumin 2.6 G/DL (3.4-5.0); Alkaline Phosphatase 231 U/L (45-117); Aspartate Amino Transferase 22 U/L (0-37); Blood Urea Nitrogen 35 MG/DL (7-18); Calcium 8.6 MG/DL (8.5-10.1); Glucose 166 MG/DL (74-106); Osmolality,Calculated 281.1 MOS/KG (273-304); Potassium 4.3 MMOL/L (3.5-5.1); Sodium 135 MMOL/L (136-145); Total Protein 9.3 G/DL (6.4-8.3); Troponin I < 0.015 NG/ML (0.00-0.045)
[2018-07-17 12:44] LABS: Anisocytosis 1+; Hypochromasia 1+; Microcytosis 1+; Ovalocytes Slight; Platelet Estimate Normal; Tear Drop Cells Slight
[2018-07-17] MEDS ORDERED: GLUCAGON 1 MG VIAL IM PRN (13:36)
[2018-07-17] MEDS ORDERED: DEXTROSE 50% 25 GM/50 ML VIAL IV PRN (13:36)
[2018-07-17] MEDS: ISOSORBIDE DINITRATE 10 MG TABLET PO SCH ×2 (17:48→21:57)
[2018-07-17] MEDS: cefTRIAXone 1,000 MG in SYRINGE 1 EACH IV SCH (17:57)
[2018-07-17] MEDS: AZITHROMYCIN INJ 500 MG in SODIUM CHLORIDE 0.9% 250 ML IV SCH (18:00)
[2018-07-17] MEDS: CALCIUM ACETATE 667 MG CAPSULE PO SCH (18:03)
[2018-07-17] MEDS: INSULIN REGULAR 100 UNIT/ML SUBCUT SCH ×2 (18:06→21:59)
[2018-07-17] MEDS: methylPREDNISolone SOD SUC 125 MG/2 ML VIAL IV SCH (18:07)
[2018-07-17] MEDS: ALBUTEROL/IPRATROPIUM 3 ML NEB RESP TX SCH (20:25)
[2018-07-17] MEDS: PREGABALIN 100 MG CAPSULE PO SCH (21:58)
[2018-07-17] MEDS: guaiFENesin/DM ER 600-30 MG TABLET PO SCH (21:58)
[2018-07-17] MEDS: CARVEDILOL 12.5 MG TABLET PO SCH (21:58)
[2018-07-17] MEDS: INSULIN GLARGINE 100 UNIT/ML SUBCUT SCH (21:59)
[2018-07-17] MEDS ORDERED: LOPERAMIDE 0.2 MG/ML 30 ML/BOTTLE PO ONE (23:00)
[2018-07-17] MEDS ORDERED: ZALEPLON 5 MG CAPSULE PO ONE (23:49)
[2018-07-18] MEDS: methylPREDNISolone SOD SUC 125 MG/2 ML VIAL IV SCH ×2 (00:16→07:30)
[2018-07-18] MEDS: ALBUTEROL/IPRATROPIUM 3 ML NEB RESP TX SCH ×4 (01:32→19:16)
[2018-07-18 05:23] LABS: Basophils % 0.1 % (0.0-0.8); Hematocrit 25.5 VOL% (42.0-52.0); Hemoglobin 7.2 GM/DL (14.0-18.0); Immature Granulocytes % 0.5 %; Immature Granulocytes Absolute 0.04 #; Lymphocytes # 0.5 10*3/uL (1.4-4.0); Lymphocytes % 6.9 % (21.2-54.2); Mean Corpuscular HGB Conc 28.2 GM/DL (32-36); Mean Corpuscular Hemoglobin 25 PG (27-34); Mean Corpuscular Volume 88.5 FL (87-102); Monocytes # 0.4 10*3/uL (0.11-0.8); Monocytes % 5.6 % (1.7-12.7); Neutrophils # 6.7 10*3/uL (1.4-7.4); Neutrophils % 86.9 % (38.7-73.9); Platelet Count 223 T/CUMM (130-400); Red Blood Count 2.88 MC/CUMM (3.8-5.5); Red Cell Distribution Width 18.4 % (9.3-17.3); White Blood Count 7.7 T/CUMM (4-12)
[2018-07-18 05:37] LABS: Albumin 2.6 G/DL (3.4-5.0); Bilirubin,Total 0.9 MG/DL (0.2-1.0); Calcium 9.1 MG/DL (8.5-10.1); Osmolality,Calculated 292.1 MOS/KG (273-304); Potassium 4.7 MMOL/L (3.5-5.1); Total Protein 9.3 G/DL (6.4-8.3)
[2018-07-18 05:52] LABS: Hypochromasia 1+; Microcytosis 1+; Ovalocytes Slight; Spherocytes Slight; Tear Drop Cells Slight
[2018-07-18 05:53] LABS: Platelet Estimate Normal
[2018-07-18] MEDS ORDERED: PRORENAL D PO SCH (09:00)
[2018-07-18] MEDS ORDERED: LOSARTAN 50 MG TABLET PO SCH (09:00)
[2018-07-18] MEDS: INSULIN REGULAR 100 UNIT/ML SUBCUT SCH ×4 (09:55→21:29)
[2018-07-18] MEDS: INSULIN GLARGINE 100 UNIT/ML SUBCUT SCH ×2 (09:56→21:27)
[2018-07-18] MEDS: CALCIUM ACETATE 667 MG CAPSULE PO SCH ×3 (09:58→17:21)
[2018-07-18] MEDS: COLCHICINE 0.6 MG TABLET PO SCH (09:58)
[2018-07-18] MEDS: ATORVASTATIN 40 MG TABLET PO SCH (09:58)
[2018-07-18] MEDS: guaiFENesin/DM ER 600-30 MG TABLET PO SCH ×2 (09:58→21:26)
[2018-07-18] MEDS: ASPIRIN EC 81 MG TABLET PO SCH (09:58)
[2018-07-18] MEDS: CARVEDILOL 12.5 MG TABLET PO SCH ×2 (09:59→21:27)
[2018-07-18] MEDS: ISOSORBIDE DINITRATE 10 MG TABLET PO SCH ×3 (10:07→21:26)
[2018-07-18] MEDS: cefTRIAXone 1,000 MG in SYRINGE 1 EACH IV SCH (12:27)
[2018-07-18] MEDS: AZITHROMYCIN INJ 500 MG in SODIUM CHLORIDE 0.9% 250 ML IV SCH (16:36)
[2018-07-18] MEDS: PREGABALIN 100 MG CAPSULE PO SCH (21:26)
[2018-07-19] MEDS: ALBUTEROL/IPRATROPIUM 3 ML NEB RESP TX SCH ×4 (01:06→19:23)
[2018-07-19 04:15] LABS: Basophils % 0.1 % (0.0-0.8); Hematocrit 24.7 VOL% (42.0-52.0); Hemoglobin 7.2 GM/DL (14.0-18.0); Immature Granulocytes % 0.5 %; Immature Granulocytes Absolute 0.05 #; Lymphocytes # 0.9 10*3/uL (1.4-4.0); Lymphocytes % 8.6 % (21.2-54.2); Mean Corpuscular HGB Conc 29.1 GM/DL (32-36); Mean Corpuscular Hemoglobin 26 PG (27-34); Mean Corpuscular Volume 88.2 FL (87-102); Mean Platelet Volume 13.1 FL (9.6-12.0); Monocytes # 1.1 10*3/uL (0.11-0.8); Monocytes % 11.1 % (1.7-12.7); Neutrophils # 7.9 10*3/uL (1.4-7.4); Neutrophils % 79.7 % (38.7-73.9); Platelet Count 224 T/CUMM (130-400); Red Cell Distribution Width 18.6 % (9.3-17.3)
[2018-07-19 04:41] LABS: Albumin 2.4 G/DL (3.4-5.0); Bilirubin,Total 0.9 MG/DL (0.2-1.0); Calcium 8.5 MG/DL (8.5-10.1); Osmolality,Calculated 295.4 MOS/KG (273-304); Potassium 4.7 MMOL/L (3.5-5.1); Total Protein 8.5 G/DL (6.4-8.3)
[2018-07-19] MEDS: INSULIN REGULAR 100 UNIT/ML SUBCUT SCH ×4 (08:54→21:36)
[2018-07-19] MEDS: COLCHICINE 0.6 MG TABLET PO SCH (08:55)
[2018-07-19] MEDS: ISOSORBIDE DINITRATE 10 MG TABLET PO SCH ×3 (08:55→21:18)
[2018-07-19] MEDS: CALCIUM ACETATE 667 MG CAPSULE PO SCH ×3 (08:55→18:12)
[2018-07-19] MEDS: LOSARTAN 50 MG TABLET PO SCH (08:56)
[2018-07-19] MEDS: CARVEDILOL 12.5 MG TABLET PO SCH ×2 (08:56→21:18)
[2018-07-19] MEDS: ATORVASTATIN 40 MG TABLET PO SCH (08:56)
[2018-07-19] MEDS: guaiFENesin/DM ER 600-30 MG TABLET PO SCH ×2 (08:56→21:18)
[2018-07-19] MEDS: ASPIRIN EC 81 MG TABLET PO SCH (08:57)
[2018-07-19] MEDS: INSULIN GLARGINE 100 UNIT/ML SUBCUT SCH ×2 (09:03→21:37)
[2018-07-19] MEDS: cefTRIAXone 1,000 MG in SYRINGE 1 EACH IV SCH ×2 (14:34→18:46)
[2018-07-19] MEDS ORDERED: CYCLOBENZAPRINE 10 MG TABLET PO PRN (19:34)
[2018-07-19 20:31] LABS: Hematocrit 29.9 VOL% (42.0-52.0)
[2018-07-19 20:35] LABS: Hemoglobin 9.1 GM/DL (14.0-18.0)
[2018-07-19] MEDS: PREGABALIN 100 MG CAPSULE PO SCH (21:17)
[2018-07-20] MEDS: ALBUTEROL/IPRATROPIUM 3 ML NEB RESP TX SCH ×2 (00:05→07:06)
[2018-07-20 08:31] VITALS: BP 170/89
[2018-07-20 08:47] LABS: Basophils % 0.4 % (0.0-0.8); Eosinophils # 0.1 10*3/uL (0.0-0.87); Eosinophils % 1.1 % (0.00-10.9); Hematocrit 30.2 VOL% (42.0-52.0); Immature Granulocytes % 0.9 %; Immature Granulocytes Absolute 0.07 #; Lymphocytes # 1.1 10*3/uL (1.4-4.0); Lymphocytes % 14.9 % (21.2-54.2); Mean Corpuscular HGB Conc 29.8 GM/DL (32-36); Mean Corpuscular Hemoglobin 26 PG (27-34); Mean Platelet Volume 12.5 FL (9.6-12.0); Monocytes # 0.9 10*3/uL (0.11-0.8); Monocytes % 11.8 % (1.7-12.7); Neutrophils # 5.4 10*3/uL (1.4-7.4); Neutrophils % 70.9 % (38.7-73.9); Platelet Count 209 T/CUMM (130-400); Red Blood Count 3.47 MC/CUMM (3.8-5.5); Red Cell Distribution Width 18.6 % (9.3-17.3); White Blood Count 7.5 T/CUMM (4-12)
[2018-07-20] MEDS: ISOSORBIDE DINITRATE 10 MG TABLET PO SCH (09:29)
[2018-07-20] MEDS: COLCHICINE 0.6 MG TABLET PO SCH (09:29)
[2018-07-20] MEDS: CALCIUM ACETATE 667 MG CAPSULE PO SCH (09:29)
[2018-07-20] MEDS: ATORVASTATIN 40 MG TABLET PO SCH (09:30)
[2018-07-20] MEDS: ASPIRIN EC 81 MG TABLET PO SCH (09:30)
[2018-07-20] MEDS: LOSARTAN 50 MG TABLET PO SCH (09:30)
[2018-07-20] MEDS: CARVEDILOL 12.5 MG TABLET PO SCH (09:30)
[2018-07-20] MEDS: guaiFENesin/DM ER 600-30 MG TABLET PO SCH (09:30)
[2018-07-20] MEDS: INSULIN REGULAR 100 UNIT/ML SUBCUT SCH (09:33)
[2018-07-20] MEDS: INSULIN GLARGINE 100 UNIT/ML SUBCUT SCH (09:41)
== END 2018-07-20 12:40 | disposition home or self-care (01) | DRG 314 ==
LOC: N.ED 10:38 → SUATTDRO 14:41 → N.EDINP 14:41 → N.5E 16:20 → N.TELES 16:28
PROVIDERS: ADMIT Internal Medicine; ATTEND Internal Medicine

== ENCOUNTER 2020-03-24 01:58 | Inpatient (IN) ==
[2020-03-24] MEDS ORDERED: METOPROLOL TARTRATE 5 MG/5 ML VIAL IV STA (02:08)
[2020-03-24] MEDS ORDERED: ASPIRIN EC 325 MG TABLET PO STA (02:09)
[2020-03-24 02:58] LABS: Basophils # 0.1 10*3/uL (0.0-0.2); Basophils % 1.5 % (0.0-0.8); Eosinophils # 0.4 10*3/uL (0.0-0.87); Eosinophils % 6.8 % (0.00-10.9); Hematocrit 33.8 VOL% (42.0-52.0); Hemoglobin 10.4 GM/DL (14.0-18.0); Immature Granulocytes % 0.2 %; Immature Granulocytes Absolute 0.01 #; Lymphocytes % 16.2 % (21.2-54.2); Mean Corpuscular HGB Conc 30.8 GM/DL (32-36); Mean Corpuscular Volume 91.8 FL (87-102); Mean Platelet Volume 12.8 FL (9.6-12.0); Monocytes % 10.7 % (1.7-12.7); Neutrophils % 64.6 % (38.7-73.9); Platelet Count 108 T/CUMM (130-400); Red Blood Count 3.68 MC/CUMM (3.8-5.5); Red Cell Distribution Width 18.1 % (9.3-17.3)
[2020-03-24] MEDS ORDERED: DILTIAZEM 50 MG/10 ML VIAL IV STA (03:15)
[2020-03-24] MEDS ORDERED: SODIUM CHLORIDE 0.9% 500 ML IV STA (03:15)
[2020-03-24 03:29] LABS: Albumin 3.9 G/DL (3.4-5.0); Bilirubin,Total 0.5 MG/DL (0.2-1.0); Calcium 8.2 MG/DL (8.5-10.1); Osmolality,Calculated 297.5 MOS/KG (273-304); Thyroid Stimulating Hormone 3.45 uIU/ml (0.358-3.74); Total Protein 8.5 G/DL (6.4-8.3)
[2020-03-24] MEDS ORDERED: AMIODARONE INJ 150 MG in DEXTROSE 5% 100 ML IV ONE (03:41)
[2020-03-24 03:47] LABS: Hypochromasia 1+; Ovalocytes 1+; Platelet Estimate Decreased; Tear Drop Cells Few
[2020-03-24] MEDS: AMIODARONE INJ 450 MG in DEXTROSE 5% 241 ML IV SCH ×2 (05:55→21:23)
[2020-03-24] MEDS ORDERED: DEXTROSE 50% 25 GM/50 ML VIAL IV PRN (06:27)
[2020-03-24] MEDS ORDERED: TICAGRELOR 90 MG TABLET PO ONE (06:27)
[2020-03-24] MEDS ORDERED: GLUCAGON 1 MG VIAL IM PRN (06:27)
[2020-03-24] MEDS ORDERED: hydrALAZINE 20 MG/1 ML VIAL IV PRN (06:27)
[2020-03-24] MEDS ORDERED: ACETAMINOPHEN 325 MG TABLET PO PRN (06:27)
[2020-03-24] MEDS ORDERED: NICOTINE 21 MG/24 HR PATCH TRANSDERM PRN (06:27)
[2020-03-24 06:59] LABS: Risk Ratio 4.35; VLDL CHOLESTEROL 24.4 MG/DL
[2020-03-24] MEDS: INSULIN REGULAR 100 UNIT/ML SUBCUT SCH ×4 (07:30→21:22)
[2020-03-24] MEDS ORDERED: LIDOCAINE 100 MG/5 ML SYRINGE IV ONE (09:59)
[2020-03-24] MEDS ORDERED: LIDOCAINE DRIP 2,000 MG/250 ML PREMIX IV SCH (10:00)
[2020-03-25] MEDS: ONDANSETRON 4 MG/2 ML VIAL IV PRN ×3 (04:03→19:42)
[2020-03-25 04:47] LABS: Basophils # 0.1 10*3/uL (0.0-0.2); Basophils % 1.2 % (0.0-0.8); Eosinophils # 0.8 10*3/uL (0.0-0.87); Eosinophils % 12.3 % (0.00-10.9); Hematocrit 35.5 VOL% (42.0-52.0); Hemoglobin 10.8 GM/DL (14.0-18.0); Immature Granulocytes % 0.6 %; Immature Granulocytes Absolute 0.04 #; Lymphocytes # 0.9 10*3/uL (1.4-4.0); Lymphocytes % 14.1 % (21.2-54.2); Mean Corpuscular HGB Conc 30.4 GM/DL (32-36); Mean Corpuscular Volume 93.9 FL (87-102); Mean Platelet Volume 13.5 FL (9.6-12.0); Monocytes % 8.3 % (1.7-12.7); Neutrophils % 63.5 % (38.7-73.9); Platelet Count 112 T/CUMM (130-400); Red Blood Count 3.78 MC/CUMM (3.8-5.5); Red Cell Distribution Width 18.5 % (9.3-17.3); White Blood Count 6.6 T/CUMM (4-12)
[2020-03-25 05:08] LABS: Calcium 8.9 MG/DL (8.5-10.1); Osmolality,Calculated 287.8 MOS/KG (273-304)
[2020-03-25 05:19] LABS: Eosinophils 12 % (0-10); Lymphocytes 11 % (20-55); Platelet Estimate Adequate; Segmented Neutrophils 73 % (50-85); Total Cells Counted 100
[2020-03-25 05:20] LABS: Hypochromasia Slight
[2020-03-25] MEDS ORDERED: SODIUM CHLORIDE 0.9% 250 ML IV ONE (08:34)
[2020-03-25] MEDS: INSULIN REGULAR 100 UNIT/ML SUBCUT SCH ×4 (09:04→20:30)
[2020-03-25] MEDS ORDERED: ePHEDrine 50 MG/ML VIAL ONE (09:36)
[2020-03-25] MEDS ORDERED: POLYETHYLENE GLYCOL POWDER 17 GM PACK PO PRN (09:40)
[2020-03-25] MEDS ORDERED: CALCIUM CHLORIDE 1,000 MG/10 ML VIAL IV ONE (09:42)
[2020-03-25] MEDS ORDERED: propofoL 200 MG/20 ML VIAL IV ONE (09:42)
[2020-03-25] MEDS ORDERED: PHENYLEPHRINE 1 MG/10 ML SYRINGE IV ONE (09:42)
[2020-03-25] MEDS: ASPIRIN EC 81 MG TABLET PO SCH (10:05)
[2020-03-25] MEDS: ENOXAPARIN 40 MG/0.4 ML SYRINGE SUBCUT SCH (10:06)
[2020-03-25] MEDS: AMIODARONE 200 MG TABLET PO SCH ×3 (10:06→20:30)
[2020-03-25] MEDS ORDERED: BISACODYL 5 MG TABLET PO PRN (12:30)
[2020-03-25] MEDS: SEVELAMER CARBONATE 800 MG TABLET PO SCH (18:54)
[2020-03-26 03:39] LABS: Basophils # 0.1 10*3/uL (0.0-0.2); Basophils % 1.2 % (0.0-0.8); Eosinophils # 0.6 10*3/uL (0.0-0.87); Eosinophils % 8.8 % (0.00-10.9); Hemoglobin 10.6 GM/DL (14.0-18.0); Immature Granulocytes % 0.4 %; Immature Granulocytes Absolute 0.03 #; Lymphocytes # 1.1 10*3/uL (1.4-4.0); Lymphocytes % 15.8 % (21.2-54.2); Mean Corpuscular HGB Conc 30.3 GM/DL (32-36); Mean Corpuscular Volume 93.8 FL (87-102); Mean Platelet Volume 13.5 FL (9.6-12.0); Monocytes % 10.6 % (1.7-12.7); Neutrophils % 63.2 % (38.7-73.9); Platelet Count 111 T/CUMM (130-400); Red Blood Count 3.73 MC/CUMM (3.8-5.5); Red Cell Distribution Width 18.4 % (9.3-17.3); White Blood Count 6.9 T/CUMM (4-12)
[2020-03-26 03:45] LABS: Calcium 9.1 MG/DL (8.5-10.1); Osmolality,Calculated 293.7 MOS/KG (273-304)
[2020-03-26 04:08] LABS: Hypochromasia 1+; Ovalocytes 1+; Platelet Estimate Normal; Polychromasia Few; Tear Drop Cells Few
[2020-03-26 04:10] LABS: Giant Platelets Few
[2020-03-26] MEDS: SEVELAMER CARBONATE 800 MG TABLET PO SCH ×2 (08:25→11:55)
[2020-03-26] MEDS: AMIODARONE 200 MG TABLET PO SCH (08:26)
[2020-03-26] MEDS: ASPIRIN EC 81 MG TABLET PO SCH (08:26)
[2020-03-26] MEDS: ENOXAPARIN 40 MG/0.4 ML SYRINGE SUBCUT SCH (08:30)
[2020-03-26] MEDS: INSULIN REGULAR 100 UNIT/ML SUBCUT SCH ×2 (08:36→12:31)
[2020-03-26] MEDS ORDERED: AMIODARONE 200 MG TABLET PO SCH (10:44)
[2020-03-26] MEDS ORDERED: LOSARTAN 50 MG TABLET PO SCH (11:15)
[2020-03-26] MEDS ORDERED: ISOSORBIDE DINITRATE 20 MG TABLET PO SCH (11:15)
[2020-03-26 11:19] VITALS: BP 156/96
[2020-03-26] MEDS ORDERED: amLODIPine 5 MG TABLET PO SCH (11:30)
[2020-03-26] MEDS ORDERED: carvediloL 25 MG TABLET PO SCH (17:00)
[2020-03-27] MEDS ORDERED: ATORVASTATIN 40 MG TABLET PO SCH (09:00)
== END 2020-03-26 12:25 | disposition left against medical advice (07) | DRG 308 ==
LOC: EDBD → EDUNIT# → SUATTDRO → N.ED 01:58 → N.EDINP 06:27 → SUATTDRO 06:27 → N.ICU 07:40
PROVIDERS: ADMIT Internal Medicine; ATTEND Internal Medicine

== ENCOUNTER 2020-04-02 04:13 | Inpatient (IN) ==
[2020-04-02] MEDS ORDERED: SODIUM CHLORIDE 0.9% 1,000 ML IV STA (04:27)
[2020-04-02 04:49] LABS: Basophils # 0.1 10*3/uL (0.0-0.2); Basophils % 1.3 % (0.0-0.8); Eosinophils # 0.4 10*3/uL (0.0-0.87); Eosinophils % 5.9 % (0.00-10.9); Hematocrit 31.1 VOL% (42.0-52.0); Hemoglobin 9.6 GM/DL (14.0-18.0); Immature Granulocytes % 0.4 %; Immature Granulocytes Absolute 0.03 #; Lymphocytes # 0.9 10*3/uL (1.4-4.0); Mean Corpuscular HGB Conc 30.9 GM/DL (32-36); Mean Corpuscular Volume 93.1 FL (87-102); Mean Platelet Volume 12.4 FL (9.6-12.0); Neutrophils % 69.4 % (38.7-73.9); Platelet Count 113 T/CUMM (130-400); Red Blood Count 3.34 MC/CUMM (3.8-5.5); Red Cell Distribution Width 18.3 % (9.3-17.3); White Blood Count 6.8 T/CUMM (4-12)
[2020-04-02] MEDS ORDERED: AMIODARONE INJ 150 MG in DEXTROSE 5% 100 ML IV ONE (04:57)
[2020-04-02 05:25] LABS: Albumin 3.6 G/DL (3.4-5.0); Bilirubin,Total 1.1 MG/DL (0.2-1.0); Calcium 8.4 MG/DL (8.5-10.1); Osmolality,Calculated 297.7 MOS/KG (273-304); Thyroid Stimulating Hormone 6.9 uIU/ml (0.358-3.74); Total Protein 8.1 G/DL (6.4-8.3)
[2020-04-02] MEDS ORDERED: AMIODARONE INJ 450 MG in DEXTROSE 5% 241 ML IV SCH (05:30)
[2020-04-02 06:15] LABS: INR 1.2; PT Patient Result 12.7 SECS (9.8-11.9)
[2020-04-02 07:29] LABS: Free T4 (Free Thyroxine) 1.03 NG/DL (0.76-1.46)
[2020-04-02] MEDS: ASPIRIN EC 81 MG TABLET PO SCH (09:15)
[2020-04-02] MEDS ORDERED: ADENOSINE 6 MG/2 ML VIAL ONE (11:21)
[2020-04-02] MEDS ORDERED: ADENOSINE 90 MG/30 ML VIAL IV ONE (12:04)
[2020-04-02] MEDS ORDERED: ATROPINE 1 MG/10 ML SYRINGE ONE ×3 (12:11→13:42)
[2020-04-02] MEDS ORDERED: ATROPINE 0.4 MG/1 ML VIAL IV ONE (12:13)
[2020-04-02] MEDS ORDERED: EPINEPHrine 1 MG/10 ML SYRINGE ONE (12:14)
[2020-04-02] MEDS ORDERED: DOBUTamine 500 MG/250 ML PREMIX IV ONE ×2 (12:24→13:43)
[2020-04-02] MEDS ORDERED: DOBUTamine 500 MG/250 ML PREMIX IV SCH (12:25)
[2020-04-02] MEDS ORDERED: propofoL 200 MG/20 ML VIAL IV ONE (12:42)
[2020-04-02] MEDS ORDERED: GLUCAGON 1 MG VIAL IM PRN (13:26)
[2020-04-02] MEDS ORDERED: DEXTROSE 50% 25 GM/50 ML VIAL IV PRN (13:26)
[2020-04-02] MEDS ORDERED: clonazePAM 0.5 MG TABLET PO PRN (13:27)
[2020-04-02] MEDS ORDERED: DOBUTamine 500 MG/250 ML PREMIX IV PRN (13:41)
[2020-04-02] MEDS ORDERED: ATROPINE 1 MG/10 ML SYRINGE IV ONE (13:51)
[2020-04-02] MEDS: SODIUM CHLORIDE 0.9% 1,000 ML IV SCH (14:25)
[2020-04-02] MEDS: INSULIN REGULAR 100 UNIT/ML SUBCUT SCH ×2 (16:16→21:30)
[2020-04-02] MEDS ORDERED: NON-FORMULARY MEDICATION (Sucroferric Oxyhydroxide [Velphoro] 1,000 MG) PO SCH (17:00)
[2020-04-02] MEDS ORDERED: ONDANSETRON 4 MG/2 ML VIAL ONE (17:17)
[2020-04-02] MEDS: ASCORBIC ACID 500 MG TABLET PO SCH (21:31)
[2020-04-02] MEDS: SERTRALINE 100 MG TABLET PO SCH (21:31)
[2020-04-02] MEDS: INSULIN ASPART PROTAMINE/ASPART 70/30 100 UNIT/ML SUBCUT SCH (21:35)
[2020-04-03] MEDS ORDERED: CALCIUM CARBONATE CHEW 500 MG TABLET PO ONE (01:09)
[2020-04-03] MEDS ORDERED: ONDANSETRON 4 MG/2 ML VIAL IV PRN (01:09)
[2020-04-03] MEDS: PANTOPRAZOLE 40 MG TABLET PO SCH ×2 (01:22→08:39)
[2020-04-03 05:29] LABS: Basophils # 0.1 10*3/uL (0.0-0.2); Basophils % 0.9 % (0.0-0.8); Eosinophils # 0.3 10*3/uL (0.0-0.87); Eosinophils % 3.8 % (0.00-10.9); Hematocrit 33.5 VOL% (42.0-52.0); Hemoglobin 10.4 GM/DL (14.0-18.0); Immature Granulocytes % 0.4 %; Immature Granulocytes Absolute 0.03 #; Lymphocytes # 0.8 10*3/uL (1.4-4.0); Lymphocytes % 11.8 % (21.2-54.2); Mean Corpuscular Volume 92.3 FL (87-102); Mean Platelet Volume 13.4 FL (9.6-12.0); Monocytes % 8.8 % (1.7-12.7); Neutrophils % 74.3 % (38.7-73.9); Platelet Count 116 T/CUMM (130-400); Red Blood Count 3.63 MC/CUMM (3.8-5.5); Red Cell Distribution Width 18.1 % (9.3-17.3)
[2020-04-03 05:43] LABS: Calcium 8.6 MG/DL (8.5-10.1)
[2020-04-03 05:53] LABS: Hypochromasia 1+; Microcytosis 1+; Ovalocytes Few; Platelet Estimate Decreased; Tear Drop Cells Slight
[2020-04-03] MEDS ORDERED: LEVOTHYROXINE 100 MCG TABLET PO SCH (06:30)
[2020-04-03] MEDS ORDERED: LIOTHYRONINE 25 MCG TABLET PO SCH (07:00)
[2020-04-03] MEDS: INSULIN REGULAR 100 UNIT/ML SUBCUT SCH ×4 (07:47→21:13)
[2020-04-03] MEDS: ASCORBIC ACID 500 MG TABLET PO SCH ×2 (08:38→21:11)
[2020-04-03] MEDS: CINACALCET 30 MG TABLET PO SCH (08:39)
[2020-04-03] MEDS: ASPIRIN EC 81 MG TABLET PO SCH (08:39)
[2020-04-03] MEDS: ATORVASTATIN 40 MG TABLET PO SCH (08:39)
[2020-04-03] MEDS: AMIODARONE 200 MG TABLET PO SCH ×2 (08:39→21:11)
[2020-04-03] MEDS: INSULIN ASPART PROTAMINE/ASPART 70/30 100 UNIT/ML SUBCUT SCH (08:44)
[2020-04-03] MEDS: SODIUM CHLORIDE 0.9% 1,000 ML IV SCH (12:08)
[2020-04-03] MEDS ORDERED: ALUMINUM/MAGNES/SIMETH MAX STR 30 ML UDCUP PO PRN (18:13)
[2020-04-03] MEDS: SERTRALINE 100 MG TABLET PO SCH (21:12)
[2020-04-04 06:14] LABS: Basophils # 0.1 10*3/uL (0.0-0.2); Basophils % 0.8 % (0.0-0.8); Eosinophils # 0.3 10*3/uL (0.0-0.87); Eosinophils % 3.1 % (0.00-10.9); Hematocrit 32.8 VOL% (42.0-52.0); Immature Granulocytes % 0.4 %; Immature Granulocytes Absolute 0.03 #; Lymphocytes # 0.8 10*3/uL (1.4-4.0); Lymphocytes % 8.8 % (21.2-54.2); Mean Corpuscular HGB Conc 30.5 GM/DL (32-36); Mean Corpuscular Volume 93.4 FL (87-102); Mean Platelet Volume 12.5 FL (9.6-12.0); Monocytes % 9.9 % (1.7-12.7); Platelet Count 119 T/CUMM (130-400); Red Blood Count 3.51 MC/CUMM (3.8-5.5); Red Cell Distribution Width 18.6 % (9.3-17.3); White Blood Count 8.5 T/CUMM (4-12)
[2020-04-04 06:32] LABS: Calcium 8.3 MG/DL (8.5-10.1)
[2020-04-04] MEDS ORDERED: LIOTHYRONINE 25 MCG TABLET PO SCH (07:30)
[2020-04-04] MEDS: INSULIN REGULAR 100 UNIT/ML SUBCUT SCH ×2 (08:20→12:02)
[2020-04-04] MEDS: ATORVASTATIN 40 MG TABLET PO SCH (08:22)
[2020-04-04] MEDS: AMIODARONE 200 MG TABLET PO SCH (08:22)
[2020-04-04] MEDS: ASCORBIC ACID 500 MG TABLET PO SCH (08:22)
[2020-04-04] MEDS: ASPIRIN EC 81 MG TABLET PO SCH (08:22)
[2020-04-04] MEDS: CINACALCET 30 MG TABLET PO SCH (08:22)
[2020-04-04] MEDS: PANTOPRAZOLE 40 MG TABLET PO SCH (08:23)
[2020-04-04 14:24] VITALS: BP 155/90
== END 2020-04-04 15:56 | disposition home health service (06) | DRG 308 ==
LOC: EDUNIT# → EDBD → N.EDINP 04:13 → N.ED 04:13 → INTOOBSV 06:44 → OBSVTOIN 06:44 → N.TELEN 07:23 → N.ICU 13:40 → N.TELES 04-03 13:59 → SUATTDRO 04-03 14:09
PROVIDERS: ADMIT Nurse Practitioner; ATTEND Internal Medicine

== ENCOUNTER 2020-04-12 11:53 | Inpatient (IN) ==
[2020-04-12] MEDS ORDERED: DILTIAZEM 50 MG/10 ML VIAL IV STA ×2 (12:16→13:08)
[2020-04-12 12:22] LABS: Basophils # 0.1 10*3/uL (0.0-0.2); Basophils % 1.3 % (0.0-0.8); Eosinophils # 0.2 10*3/uL (0.0-0.87); Eosinophils % 3.4 % (0.00-10.9); Hematocrit 32.9 VOL% (42.0-52.0); Hemoglobin 10.3 GM/DL (14.0-18.0); Immature Granulocytes % 0.6 %; Immature Granulocytes Absolute 0.04 #; Lymphocytes # 0.9 10*3/uL (1.4-4.0); Mean Corpuscular HGB Conc 31.3 GM/DL (32-36); Mean Corpuscular Volume 92.2 FL (87-102); Mean Platelet Volume 12.4 FL (9.6-12.0); Monocytes % 8.9 % (1.7-12.7); Neutrophils % 70.8 % (38.7-73.9); Platelet Count 140 T/CUMM (130-400); Red Blood Count 3.57 MC/CUMM (3.8-5.5); Red Cell Distribution Width 18.6 % (9.3-17.3); White Blood Count 6.2 T/CUMM (4-12)
[2020-04-12 12:51] LABS: Albumin 3.8 G/DL (3.4-5.0); Bilirubin,Total 0.5 MG/DL (0.2-1.0); Calcium 8.2 MG/DL (8.5-10.1); Osmolality,Calculated 299.5 MOS/KG (273-304); Thyroid Stimulating Hormone 3.09 uIU/ml (0.358-3.74); Total Protein 8.2 G/DL (6.4-8.3)
[2020-04-12] MEDS ORDERED: AMIODARONE INJ 150 MG in DEXTROSE 5% 100 ML IV ONE (13:10)
[2020-04-12] MEDS ORDERED: GLUCAGON 1 MG VIAL IM PRN (13:35)
[2020-04-12] MEDS ORDERED: DEXTROSE 50% 25 GM/50 ML VIAL IV PRN ×2 (13:35→13:59)
[2020-04-12] MEDS ORDERED: clonazePAM 0.5 MG TABLET PO PRN (13:39)
[2020-04-12] MEDS ORDERED: AMIODARONE INJ 450 MG in DEXTROSE 5% 241 ML IV SCH ×2 (14:00→15:00)
[2020-04-12] MEDS ORDERED: ACETAMINOPHEN 325 MG TABLET PO PRN (14:20)
[2020-04-12] MEDS ORDERED: propofoL 200 MG/20 ML VIAL IV ONE (14:53)
[2020-04-12] MEDS ORDERED: DIAZEPAM 5 MG TABLET PO ONE (15:18)
[2020-04-12] MEDS ORDERED: diphenhydrAMINE CAP 25 MG CAPSULE PO ONE (15:18)
[2020-04-12] MEDS: ENOXAPARIN 30 MG/0.3 ML SYRINGE SUBCUT SCH (18:10)
[2020-04-12] MEDS: INSULIN LISPRO 100 UNIT/ML SUBCUT SCH (18:11)
[2020-04-12] MEDS ORDERED: CALCIUM CARBONATE CHEW 500 MG TABLET PO PRN (18:15)
[2020-04-12] MEDS ORDERED: SERTRALINE 100 MG TABLET PO SCH (21:00)
[2020-04-12] MEDS ORDERED: INSULIN ASPART PROTAMINE/ASPART 70/30 100 UNIT/ML SUBCUT SCH (21:00)
[2020-04-12] MEDS: ASCORBIC ACID 500 MG TABLET PO SCH (21:51)
[2020-04-12] MEDS: AMIODARONE 200 MG TABLET PO SCH (21:52)
[2020-04-12] MEDS: ONDANSETRON 4 MG/2 ML VIAL IV PRN (22:55)
[2020-04-13] MEDS: INSULIN LISPRO 100 UNIT/ML SUBCUT SCH ×3 (01:11→14:32)
[2020-04-13 05:47] LABS: Basophils # 0.1 10*3/uL (0.0-0.2); Basophils % 1.1 % (0.0-0.8); Eosinophils # 0.2 10*3/uL (0.0-0.87); Eosinophils % 3.3 % (0.00-10.9); Hematocrit 32.3 VOL% (42.0-52.0); Hemoglobin 9.8 GM/DL (14.0-18.0); Immature Granulocytes % 0.3 %; Immature Granulocytes Absolute 0.02 #; Mean Corpuscular HGB Conc 30.3 GM/DL (32-36); Mean Corpuscular Volume 93.9 FL (87-102); Mean Platelet Volume 12.6 FL (9.6-12.0); Monocytes % 11.1 % (1.7-12.7); Neutrophils % 67.2 % (38.7-73.9); Platelet Count 136 T/CUMM (130-400); Red Blood Count 3.44 MC/CUMM (3.8-5.5); Red Cell Distribution Width 18.6 % (9.3-17.3); White Blood Count 6.1 T/CUMM (4-12)
[2020-04-13 07:19] LABS: Calcium 8.8 MG/DL (8.5-10.1)
[2020-04-13 07:20] LABS: Albumin 3.8 G/DL (3.4-5.0); Bilirubin,Total 0.66 MG/DL (0.2-1.0); Osmolality,Calculated 296.8 MOS/KG (273-304); Total Protein 8.6 G/DL (6.4-8.3)
[2020-04-13] MEDS ORDERED: LIOTHYRONINE 25 MCG TABLET PO SCH (07:30)
[2020-04-13] MEDS ORDERED: diphenhydrAMINE CAP 25 MG CAPSULE PO ONE (09:00)
[2020-04-13] MEDS ORDERED: DIAZEPAM 5 MG TABLET PO ONE (09:00)
[2020-04-13] MEDS ORDERED: ATORVASTATIN 40 MG TABLET PO SCH (09:00)
[2020-04-13] MEDS ORDERED: ISOSORBIDE MONONITRATE 30 MG TABLET PO SCH (09:00)
[2020-04-13] MEDS ORDERED: ASPIRIN EC 81 MG TABLET PO SCH (09:00)
[2020-04-13] MEDS ORDERED: CINACALCET 30 MG TABLET PO SCH (09:00)
[2020-04-13] MEDS ORDERED: PANTOPRAZOLE 40 MG TABLET PO SCH (09:00)
[2020-04-13] MEDS ORDERED: LIDOCAINE 1% 20 ML VIAL ONE (09:44)
[2020-04-13] MEDS ORDERED: HEPARIN/NACL 0.9% 2 UNITS/ML 1,000 ML IV ONE (09:44)
[2020-04-13] MEDS ORDERED: AMIODARONE 200 MG TABLET PO SCH (12:00)
[2020-04-13] MEDS ORDERED: MIDAZOLAM 2 MG/2 ML VIAL ONE (12:05)
[2020-04-13] MEDS ORDERED: HYDROmorphone 2 MG/1 ML VIAL ONE (12:05)
[2020-04-13] MEDS ORDERED: NITROGLYCERIN DRIP 50 MG/250 ML BOTTLE IV ONE (12:09)
[2020-04-13] MEDS ORDERED: VERAPAMIL 5 MG/2 ML VIAL ONE (12:09)
[2020-04-13] MEDS ORDERED: ENOXAPARIN 30 MG/0.3 ML SYRINGE ONE (12:14)
[2020-04-13] MEDS: AMIODARONE 200 MG TABLET PO SCH (14:32)
[2020-04-13] MEDS: ASCORBIC ACID 500 MG TABLET PO SCH (14:32)
[2020-04-13] MEDS: ONDANSETRON 4 MG/2 ML VIAL IV PRN (14:59)
[2020-04-13] MEDS ORDERED: ONDANSETRON 4 MG/2 ML VIAL IV ONE (15:20)
[2020-04-13] MEDS: ENOXAPARIN 30 MG/0.3 ML SYRINGE SUBCUT SCH (16:38)
[2020-04-13 17:43] VITALS: BP 161/92
== END 2020-04-13 18:37 | disposition home health service (06) | DRG 286 ==
LOC: N.ED 11:53 → SUATTDRO 14:20 → N.EDINP 14:20 → N.TELEN 15:47
PROVIDERS: ADMIT Internal Medicine; ATTEND Internal Medicine